=== PATIENT | female | born 1960 | race Hispanic/Latino ===

== ENCOUNTER 2016-11-20 16:22 | Inpatient (IN) | payer OTHER ==
--- NOTE | 2016-11-20 16:53 | ED PDOC ---
Arrival/HPI - General Time Seen by Provider: 11/20/16 16:24 Historian: Patient, Other (PMD) - History of Present Illness Narrative History of Present Illness (Text): 11/20/16 16:45 A 56 year old female, whose past medical history includes breast cancer stage IV on Xeloda every other week and right breast mastectomy, is sent into the emergency department by PMD for shortness of breath. Dr. Peraza reports chest xray findings showed left lung white out. Patient complains of worsening shortness of breath over the past week. Patient states her symptoms are exacerbated with movement and relieved at rest. Patient denies any fever, chills , nausea, vomiting, abdominal pain, chest pain, lower extremity pain/swelling or any other complaints. PMD: Dr. Hamilton Peraza Oncologist: Dr. Magallanes Time/Duration: 1 week Symptom Course: Worsening Quality: Other Context: Home, Other Past Medical History - Provider Review Nursing Documentation Reviewed: Yes - Infectious Disease Hx of Infectious Diseases: None - Cardiac Hx Pacemaker: Yes (PT TO BRING IN CARD-) Other/Comment: L chest pacemaker+defibrillator - Neurological Hx Paralysis: No - Hematological/Oncological Hx Blood Transfusions: Yes (1997) Hx Blood Transfusion Reaction: No Hx Cancer: Yes (R breast CA, L shoulder skin CA) - Integumentary Other/Comment: L skin CA - Musculoskeletal/Rheumatological Hx Musculoskeletal Disorders: No - Psychiatric Hx Emotional Abuse: No Hx Physical Abuse: No Hx Substance Use: No - Surgical History Other/Comment: L chest pacemaker+defib - Anesthesia Hx Anesthesia: Yes Hx Anesthesia Reactions: No Hx Malignant Hyperthermia: No - Suicidal Assessment Feels Threatened In Home Enviroment: No Family/Social History - Physician Review Nursing Documentation Reviewed: Yes Family/Social History: No Known Family HX Smoking Status: Unknown If Ever Smoked Hx Alcohol Use: No Hx Substance Use: No Allergies/Home Meds Allergies/Adverse Reactions: Allergies No Known Allergies Allergy (Verified 08/07/15 13:27) Home Medications: Home Meds Medication Instructions Recorded Confirmed Aspirin [Ecotrin] 81 mg PO DAILY 08/08/15 11/20/16 Biotin [Nature's Blend Biotin] 1,000 mcg PO BID 08/08/15 11/20/16 Carvedilol [Coreg] 6.25 mg PO BID 08/08/15 11/20/16 Exemestane 25 mg PO QPM 08/08/15 11/20/16 Furosemide [Lasix] 40 mg PO QAM 08/08/15 11/20/16 Losartan [Cozaar] 25 mg PO QPM 08/08/15 11/20/16 Review of Systems - Physician Review All systems were reviewed & negative as marked: Yes - Review of Systems Constitutional: absent: Fevers, Night Sweats Respiratory: SOB Cardiovascular: absent: Chest Pain Gastrointestinal: absent: Abdominal Pain, Nausea, Vomiting Physical Exam Vital Signs Reviewed: Yes Vital Signs Temp Pulse Resp BP Pulse Ox 11/20/16 21:18 109 H 18 116/85 94 L 11/20/16 19:59 112 H 18 123/67 97 11/20/16 18:23 99 H 17 130/85 98 11/20/16 16:40 97.9 F 107 H 19 127/80 97 Temperature: Afebrile Blood Pressure: Normal Pulse: Tachycardic Respiratory Rate: Normal Appearance: Positive for: Well-Appearing, Non-Toxic, Comfortable Pain Distress: None Mental Status: Positive for: Alert and Oriented X 3 - Systems Exam Head: Present: Atraumatic, Normocephalic Pupils: Present: PERRL Extroacular Muscles: Present: EOMI Conjunctiva: Present: Normal Mouth: Present: Moist Mucous Membranes Neck: Present: Normal Range of Motion Respiratory/Chest: Present: Clear to Auscultation, Decreased Breath Sounds (on left), Tachypneic (mild). No: Respiratory Distress, Accessory Muscle Use Cardiovascular: Present: Regular Rate and Rhythm, Normal S1, S2. No: Murmurs Abdomen: Present: Normal Bowel Sounds. No: Tenderness, Distention, Peritoneal Signs Back: Present: Normal Inspection Upper Extremity: Present: Normal Inspection. No: Cyanosis, Edema Lower Extremity: Present: Normal Inspection. No: Edema, CALF TENDERNESS Neurological: Present: GCS=15, CN II-XII Intact, Speech Normal Skin: Present: Warm, Dry, Normal Color. No: Rashes Psychiatric: Present: Alert, Oriented x 3, Normal Insight, Normal Concentration Medical Decision Making ED Course and Treatment: 11/20/16 16:45 Impression: A 56 year old female with worsening shortness of breath. Patient denies any chest pain or other complaints. Differential Diagnosis included but are not limited to: Pleural effusion secondary to Lung CA Plan: -- Chest CT -- Chest xray -- EKG -- Labs -- Blood culture -- Reassess and disposition Progress Notes: EKG shows sinus tachycardia at [address] changes. Interpreted by me. Report Date : 11/20/2016 17:28:45 Procedure: Chest xray Dictator : Fidel Torres MD IMPRESSION: Complete opacification of the left hemithorax with shift of mediastinal structures to the contralateral, right side likely reflective of combination pulmonary parenchymal process/ mass and left pleural effusion. No comparison studies. 11/20/16 17:[address] Hamilton Peraza to let him know of Xray findings. He placed me on with Dr. Magallanes who told me that he had spoken already with Dr. Jasmine who is aware of case and said to call him when xray was back. Paged Dr. Jasmine via [email or web address]. 11/20/16 18:[address] Jasmine's content assistant/confidential secretary that he's in a procedure and will be done soon. Report Date : 11/20/2016 18:56:29 PROCEDURE: CT Chest with contrast Dictator : Fidel Torres MD IMPRESSION: Large left pleural effusion. Compressive atelectasis left lung. Complete collapse of the left lung in part relates to tumor mass with circumferential involvement of left pulmonary artery and left tracheobronchial tree at the level of the lobar bronchi. Findings likely reflective of hepatic metastatic disease. Sclerotic Osseous metastatic disease, involving the left scapula. 11/20/16 19:00 Dr. Jasmine called back and I discussed the case with him. He reviewed the CT with report and agrees she needs urgent drainage. He will come down to do the procedure. 11/20/16 20:12 Dr. Peck, ICU, came to evaluate patient. He agreed to accept the patient overnight to the ICU. Pending Dr. Jasmine. 11/20/16 20:25 Dr. Jasmine's RN Yanet at bedside to prepare patient for procedure. - Critical Care Critical Care Minutes: 30 minutes - Lab Interpretations Microbiology Results: Microbiology Results 11/20/16 17:40 Blood-Venous Blood Culture - Preliminary NO GROWTH AFTER 3 DAYS 11/20/16 17:10 Blood-Venous Blood Culture - Preliminary NO GROWTH AFTER 3 DAYS Lab Results: 11/20/16 17:10 11/20/16 17:45 Lab Results 11/20/16 19:20: Blood Type A NEGATIVE, Antibody Screen Negative, BBK History Checked No verified bt 11/20/16 17:45: Sodium 141, Chloride 101, Potassium 3.6, Carbon Dioxide 28, Anion Gap 16, BUN 17, Creatinine 0.6, Est GFR ( Amer) > 60, Est GFR (Non- Af Amer) > 60, Random Glucose 112 H, Calcium 8.8, Total Bilirubin 0.7, AST 36, ALT 21, Alkaline Phosphatase 82, Lactate Dehydrogenase 607, Total Creatine Kinase 55, Troponin I < 0.01, NT-Pro-B Natriuret Pep 397, Total Protein 8.2, Albumin 4.1, Globulin 4.1, Albumin/Globulin Ratio 1.0 L 11/20/16 17:10: pO2 95 H, VBG pH 7.46 H, VBG pCO2 38.0 L, VBG HCO3 27.0, VBG Total CO2 28.2 H, VBG O2 Sat (Calc) 98.5 H, VBG Base Excess 3.1 H, VBG Potassium 3.9, Sodium 137.0, Chloride 105.0, Glucose 127 H, Lactate 1.5, FiO2 21.0, Venous Blood Potassium 3.9 11/20/16 17:10: PT 12.0 H, INR 1.11 H, APTT 24.9 11/20/16 17:10: WBC 9.5 D, RBC 3.83, Hgb 11.8 L, Hct 34.9 L, MCV 91.1, MCH 30.8 , MCHC 33.8, RDW 12.8, Plt Count 447, MPV 9.1, Gran % 68.6 H, Lymph % (Auto) 18.3 L, Valencia % (Auto) 11.4 H, Eos % (Auto) 1.2 L, Baso % (Auto) 0.5, Gran # 6.53 H, Lymph # 1.7, Valencia # 1.1 H, Eos # 0.1, Baso # 0.05 I have reviewed the lab results: Yes - RAD Interpretation Radiology Orders: 11/20/16 16:52 CHEST PORTABLE [RAD] Stat 11/20/16 16:53 CHEST W/CONTRAST [CT] Stat 11/20/16 20:00 THORACENTESIS [US] Stat - Medication Orders Current Medication Orders: Acetaminophen (Tylenol 325mg Tab) 650 mg PO Q6H PRN PRN Reason: Pain, Mild (1-3) Albuterol/Ipratropium (Duoneb 3 Mg/0.5 Mg (3 Ml) Ud) 3 ml IH [id number] [facility] Last Admin: 11/24/16 01:40 Dose: 3 ml Aspirin (Ecotrin) 81 mg PO DAILY [facility] Last Admin: 11/23/16 10:22 Dose: 81 mg Carvedilol (Coreg) 6.25 mg PO BID [facility] Last Admin: 11/23/16 17:34 Dose: 6.25 mg Exemestane (Aromasin) 25 mg PO QPM [facility] Last Admin: 11/23/16 17:31 Dose: 25 mg Furosemide (Lasix) 40 mg PO QAM [facility] Last Admin: 11/23/16 10:21 Dose: 40 mg Guaifenesin/Dextromethorphan (Robitussin Dm) 10 ml PO Q4H PRN PRN Reason: Cough Last Admin: 11/23/16 01:18 Dose: 10 ml Cefepime HCl (Maxipime 1gm) 1 gm in 100 mls @ 100 mls/hr IVPB Q8 [facility] PRN Reason: Protocol Last Admin: 11/24/16 05:44 Dose: 100 mls/hr Vancomycin HCl (Vancomycin 1gm) 1 gm in 250 mls @ 167 mls/hr IVPB Q12H [facility] PRN Reason: Protocol Last Admin: 11/24/16 02:29 Dose: 167 mls/hr Losartan Potassium (Cozaar) 25 mg PO QPM [facility] Last Admin: 11/23/16 17:30 Dose: 25 mg Pantoprazole Sodium (Protonix Ec Tab) 40 mg PO 0600 [facility] Last Admin: 11/24/16 05:44 Dose: 40 mg Tramadol HCl (Ultram) 50 mg PO Q6H PRN PRN Reason: Pain, moderate (4-7) Discontinued Medications Azithromycin (Zithromax) 250 mg PO DAILY [facility] PRN Reason: Protocol Stop: 11/22/16 10:00 Last Admin: 11/21/16 09:06 Dose: Ceftriaxone Sodium (Rocephin 1 Gram Ivpb) 1 gm in 100 mls @ 100 mls/hr IVPB DAILY [facility] PRN Reason: Protocol Last Admin: 11/21/16 11:34 Dose: 100 mls/hr Iohexol (Omnipaque 350 100 Ml) Confirm Administered Dose 350 mg .ROUTE .STK-MED ONE Stop: 11/20/16 18:20 Morphine Sulfate (Morphine) 4 mg IVP STAT STA Stop: 11/20/16 21:06 Non-Formulary Medication (Biotin [Biotin]) 1,000 mcg PO BID [facility] Last Admin: 11/23/16 10:15 Dose: Potassium Chloride (K-Dur 20 Meq Er Tab) 20 meq PO BID [facility] Stop: 11/23/16 16:00 Last Admin: 11/23/16 10:21 Dose: 20 meq Potassium Chloride (K-Dur 20 Meq Er Tab) 20 meq PO ONCE ONE Stop: 11/23/16 17:30 Last Admin: 11/23/16 17:32 Dose: 20 meq - Scribe Statement The provider has reviewed the documentation as recorded by the Charisma Aldana Provider Scribe Attestation: All medical record entries made by the Cecliioibhortensia were at my direction and personally dictated by me. I have reviewed the chart and agree that the record accurately reflects my personal performance of the history, physical exam, medical decision making, and the department course for this patient. I have also personally directed, reviewed, and agree with the discharge instructions and disposition. Disposition/Present on Arrival - Present on Arrival Any Indicators Present on Arrival: No History of DVT/PE: No History of Uncontrolled Diabetes: No Urinary Catheter: No History of Decub. Ulcer: No History Surgical Site Infection Following: None - Disposition Have Diagnosis and Disposition been Completed?: Yes Diagnosis: Pleural effusion, left Disposition: HOSPITALIZED Disposition Time: 19:48 Patient Plan: Admission, ICU Patient Problems: Current Active Problems Problem Status Onset Pleural effusion, left Acute Condition: SERIOUS
[2016-11-20 17:30] LABS: VENOUS BLOOD GAS BASE EXCESS 3.1 mmol/L (0.0-2.0); VENOUS BLOOD PH 7.46 (7.32-7.43)
--- NOTE | 2016-11-20 17:30 | RAD ---
HISTORY: Shortness of breath, rule a pleural effusion. Relevant medical history: Breast cancer, status post right mastectomy. COMPARISON: No prior. FINDINGS: LUNGS: Complete opacification of the left imtiaz thorax was shift of mediastinal structures to the contralateral side. PLEURA: Findings in the left hemithorax likely representing combination of mass and pleural effusion. The CARDIOVASCULAR: No radiographic findings to suggest acute or significant cardiovascular disease. Position/ configuration of pacemaker device: Satisfactory. OSSEOUS STRUCTURES: No significant abnormalities. VISUALIZED UPPER ABDOMEN: Normal. OTHER FINDINGS: None. IMPRESSION: Complete opacification of the left hemithorax with shift of mediastinal structures to the contralateral, right side likely reflective of combination pulmonary parenchymal process/ mass and left pleural effusion. No comparison studies.
[2016-11-20 17:40] LABS: BASO # 0.05 K/mm3 (0.0-2.0); BASO % 0.5 % (0.0-3.0); EOS # 0.1 (0.0-0.7); EOS % 1.2 % (1.5-5.0); GRAN # 6.53 (1.4-6.5); GRAN % 68.6 % (50.0-68.0); HEMATOCRIT 34.9 % (36.0-48.0); LYMPH # 1.7 (1.2-3.4); LYMPH % 18.3 % (22.0-35.0); MEAN CELL VOLUME 91.1 fl (80.0-105.0); MEAN CORPUSCULAR HEMOGLOBIN 30.8 pg (25.0-35.0); MEAN CORPUSCULAR HGB CONC 33.8 g/dl (31.0-37.0); MEAN PLATELET VOLUME 9.1 fl (7.0-11.0); MONO # 1.1 (0.1-0.6); MONO % 11.4 % (1.0-6.0); RED CELL DISTRIBUTION WIDTH 12.8 % (11.5-14.5); WHITE BLOOD COUNT 9.5 10^3/ul (4.5-11.0)
[2016-11-20 17:46] LABS: INR 1.11 (0.93-1.08); PARTIAL THROMBOPLASTIN TIME 24.9 Seconds (23.7-30.8)
[2016-11-20 18:10] LABS: ALKALINE PHOSPHATASE 82 U/L (38-126); ALT/SGPT 21 U/L (7-56); AST/SGOT 36 U/L (14-36); BILIRUBIN,TOTAL 0.7 mg/dL (0.2-1.3); BLOOD UREA NITROGEN 17 mg/dL (7-21); CALCIUM 8.8 mg/dL (8.4-10.5); CARBON DIOXIDE 28 mmol/L (21-33); CHLORIDE 101 mmol/L (98-107); GFR AFRICAN-AMERICAN > 60; GLUCOSE,RANDOM 112 mg/dL (70-110); POTASSIUM 3.6 mmol/L (3.6-5.0); SODIUM 141 mmol/L (132-148); TOTAL PROTEIN 8.2 g/dL (5.8-8.3)
[2016-11-20] MEDS ORDERED: Iohexol 350 MG/100 ML VIAL ONE (18:19)
[2016-11-20 18:24] LABS: TROPONIN I < 0.01 ng/mL
--- NOTE | 2016-11-20 18:58 | CT ---
PROCEDURE: CT Chest with contrast HISTORY: dec left breathe sounds r/o pleural effusion/mass COMPARISON: None. TECHNIQUE: Contiguous axial images were obtained through the chest with intravenous contrast enhancement. Sagittal and coronal reconstructions were performed. IV contrast: 100 cc Omnipaque 350. Radiation dose (DLP): 30.24 mGy-cm. This CT exam was performed using one or more of the following dose reduction techniques: Automated exposure control, adjustment of the mA and/or kV according to patient size, and/or use of iterative reconstruction technique. FINDINGS: LUNGS: Compressive atelectasis related to large left pleural effusion. Necrotic mass/tumor identified medially in the left lung with extension into the left hilum and mediastinum. There is circumferential narrowing of the left main pulmonary artery and lobar branches of the tracheobronchial tree on the left. There is no aerated left lung, the left imtiaz thorax comprised of large left pleural effusion, compressive and postobstructive atelectasis can't tumor inseparable from the the collapsed left lung extending into the left hilum. MEDIASTINUM: Mild aneurysmal dilatation of the ascending aorta, maximum diameter 3.9 cm with orthogonal mean diameter 3.4 cm. Normal sized heart. Main pulmonary artery unremarkable. No vascular congestion. No radiographic findings to suggest acute or significant cardiovascular disease. Position/ configuration of pacemaker Satisfactory. There is a is narrowing or thrombosis of the left subclavian vein with collateral flow through vertebral arteries. PLEURA: Large left pleural effusion common no significant right pleural effusion. BONES: Sclerotic metastatic disease involving the left scapula. UPPER ABDOMEN: Hepatic masses in the right hepatic lobe the largest measuring 1.9 cm. Smaller lesions in the right hepatic lobe are less well visualized. The overall appearance suggests hepatic metastatic disease. OTHER FINDINGS: None. IMPRESSION: Large left pleural effusion. Compressive atelectasis left lung. Complete collapse of the left lung in part relates to tumor mass with circumferential involvement of left pulmonary artery and left tracheobronchial tree at the level of the lobar bronchi. Findings likely reflective of hepatic metastatic disease. Sclerotic Osseous metastatic disease, involving the left scapula.
[2016-11-20] MEDS ORDERED: Morphine 4 mg/ml ISec IVP STA (21:05)
--- NOTE | 2016-11-20 21:53 | CP.PCM.CON ---
<ISAURA SANTACRUZ - Last Filed: 11/21/16 02:19> History of Present Illness - History of Present Illness History of Present Illness: Isaura Santacruz DO PGY1 - ICU Consult Note CC: SOB HPI: 56 yo F with PMH of stage IV breast CA on Xeloda every other week and Exemestane and CHF presents to ER complaining of SOB, sent by PMD after outpatient CXR showed white out of the L lung. Patient reports that she has been SOB for about one week, only when she walks or exerts herself. She denies cough, F/C, chest pain, leg pain/swelling, abdominal pain, N/V/D/C. Regarding her CHF, patient reports that she was diagnosed several years ago after she was found to have b/l pleural effusions, at which point her EF was 16%, on more recent echo EF was reportedly 37%, though no documentation available at present , and none in EMR. Patient had bedside thoracentesis, and was seen again immediately afterwards. She had some cough and chest pain, which was already improving. Also noted improvement in SOB. No hemoptysis, hematemesis, dizziness. PMH: Stage IV breast CA s/p right mastectomy, CHF (LVEF 37%) PSH: R mastectcomy, Pacemaker/Defibrillator placement Meds: See MAR FHx: VA in father, CVA in mother Soc: Denies Tob, EtOH, and illicits All: NKDA Constitutional: pt denies fever, chills, generalized weakness ENT: pt denies dysphagia, otalgia, hearing deficit, rhinorrhea Eyes: pt denies sudden loss of vision, diplopia, blurred vision MSK: pt denies muscle stiffness, joint pain, extremity cramping Cardio: +SOB pt denies heart murmur, CP Pulm: pt denies cough, hemoptysis, wheeze GI: pt denies loss of appetite, abdominal pain, constipation, melena, n/v/d : pt denies burning on urination, urinary frequency, hematuria, urinary urgency Neuro: pt denies paresis, paresthesia, dizziness, luz, numbness, tingling Derm: pt denies skin changes, lesions, nail changes Endo: pt denies intolerance to heat/cold, diaphoresis, night sweats, polydipsia Psych: pt denies anxiety, depression, mood changes PMD: Dr. Hamilton Peraza Oncologist: Dr. Magallanes Past Patient History - Infectious Disease Hx of Infectious Diseases: None - Past Social History Smoking Status: Unknown If Ever Smoked - CARDIAC Hx Pacemaker: Yes (PT TO BRING IN CARD-) Other/Comment: L chest pacemaker+defibrillator - NEUROLOGICAL Hx Paralysis: No - HEMATOLOGICAL/ONCOLOGICAL Hx Blood Transfusions: Yes (1997) Hx Blood Transfusion Reaction: No Hx Cancer: Yes (R breast CA, L shoulder skin CA) - INTEGUMENTARY Other/Comment: L skin CA - MUSCULOSKELETAL/RHEUMATOLOGICAL Hx Musculoskeletal Disorders: No - PSYCHIATRIC Hx Emotional Abuse: No Hx Physical Abuse: No Hx Substance Use: No - SURGICAL HISTORY Other/Comment: L chest pacemaker+defib - ANESTHESIA Hx Anesthesia: Yes Hx Anesthesia Reactions: No Hx Malignant Hyperthermia: No Meds Allergies/Adverse Reactions: Allergies Allergy/AdvReac Type Severity Reaction Status Date / Time No Known Allergies Allergy Verified 08/07/15 13:27 - Medications Medications: Current Medications Acetaminophen (Tylenol 325mg Tab) 650 mg PO Q6H PRN PRN Reason: Pain, Mild (1-3) Aspirin (Ecotrin) 81 mg PO DAILY [facility] Azithromycin (Zithromax) 250 mg PO DAILY [facility] PRN Reason: Protocol Stop: 11/22/16 10:00 Carvedilol (Coreg) 6.25 mg PO BID [facility] Exemestane (Aromasin) 25 mg PO QPM [facility] Furosemide (Lasix) 40 mg PO QAM [facility] Losartan Potassium (Cozaar) 25 mg PO QPM [facility] Non-Formulary Medication (Biotin [Biotin]) 1,000 mcg PO BID [facility] Pantoprazole Sodium (Protonix Ec Tab) 40 mg PO 0600 [facility] Tramadol HCl (Ultram) 50 mg PO Q6H PRN PRN Reason: Pain, moderate (4-7) Physical Exam - Constitutional Appears: Non-toxic, No Acute Distress - Head Exam Head Exam: ATRAUMATIC, NORMOCEPHALIC - Eye Exam Eye Exam: EOMI, PERRL - ENT Exam ENT Exam: Mucous Membranes Moist - Neck Exam Additional comments: No JVD sitting upright. - Respiratory Exam Respiratory Exam: NORMAL BREATHING PATTERN. absent: Respiratory Distress Additional comments: On initial exam, R lung CTA, no lung sounds on left After thoracentesis, bilateral lungs CTA with equal breath sounds, good air exchange, no rales or rhonchi - Cardiovascular Exam Cardiovascular Exam: RRR, +S1, +S2. absent: Tachycardia - GI/Abdominal Exam GI & Abdominal Exam: Normal Bowel Sounds, Soft. absent: Tenderness - Extremities Exam Extremities exam: Negative for: calf tenderness, pedal edema - Neurological Exam Neurological exam: Alert, Oriented x3 - Psychiatric Exam Psychiatric exam: Normal Affect, Normal Mood - Skin Skin Exam: Dry, Intact Results - Vital Signs Recent Vital Signs: Last Vital Signs Temp 97.9 F 11/20/16 16:40 Pulse 109 H 11/20/16 21:18 Resp 18 11/20/16 21:18 BP 116/85 11/20/16 21:18 Pulse Ox 94 L 11/20/16 21:18 - Labs Result Diagrams: 11/20/16 17:10 11/20/16 17:45 Assessment & Plan - Assessment and Plan (Free Text) Assessment: 56 yo F with PMH of stage IV breast CA s/p mastectomy, on chemotherapy and hormone therapy, CHF with reported LVEF 37%, presents with SOB and L lung white- out on CXR, now s/p thoracentesis 2.9L. Plan: Neuro: - Patient is AAOx3, mentating well - Continue to monitor for change in mental status Cardio: - Patient is currently hemodynamically stable s/p thoracentesis 2.9L - Pt has history of CHF with reported LVEF 37%, though no documentation of prior echo available - Ordered echocardiogram to r/o worsening CHF and establish a baseline - Pt did not take home meds today, but will hold until AM - Maintain MAP>65 Pulm: - Pt presented with massive unilateral pleural effusion, likely 2/2 metastatic breast CA, without hemodynamic compromise - Now s/p thoracentesis 2.9L with IR (Dr. Jasmine); fluid appears serosanguinous - Postprocedural CXR shows no residual mediastinal shift, good aeration of both lungs, resolution of pleural effusion - Repeat CXR in AM ordered - Pleural fluid sent for cytological analysis, cell count - Patient is now saturating well on 2L NC, and lungs are CTA - Monitor closely for reexpansion pulmonary edema - Pain control with Tylenol and Tramadol for pleurisy - Robitussin for cough suppression - HOB elevation >30 degrees, Maintain SaO2 >90% GI: - Patient tolerating PO - Heart healthy diet - Protonix for Ppx Renal: - Monitor and replete lytes as needed - Maintain euvolemia Endo: - Patient on Exemestane hormonal therapy at home. 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 Magallanes and Dr. Peraza for this issue - Pleural effusion likely 2/2 metastatic disease; fluid sent for cytological analysis, cell count - Dr. Peraza accepted patient admission, appreciate recs GI/DVT Ppx - Protonix and SCD. Patient seen, discussed, and reviewed with attending <Jair Peck P - Last Filed: 11/21/16 03:56> Meds - Medications Medications: Current Medications Acetaminophen (Tylenol 325mg Tab) 650 mg PO Q6H PRN PRN Reason: Pain, Mild (1-3) Aspirin (Ecotrin) 81 mg PO DAILY [facility] Azithromycin (Zithromax) 250 mg PO DAILY [facility] PRN Reason: Protocol Stop: 11/22/16 10:00 Carvedilol (Coreg) 6.25 mg PO BID [facility] Exemestane (Aromasin) 25 mg PO QPM [facility] Furosemide (Lasix) 40 mg PO QAM [facility] Guaifenesin/Dextromethorphan (Robitussin Dm) 10 ml PO Q4H PRN PRN Reason: Cough Last Admin: 11/20/16 23:12 Dose: 10 ml Losartan Potassium (Cozaar) 25 mg PO QPM [facility] Non-Formulary Medication (Biotin [Biotin]) 1,000 mcg PO BID [facility] Pantoprazole Sodium (Protonix Ec Tab) 40 mg PO 0600 [facility] Tramadol HCl (Ultram) 50 mg PO Q6H PRN PRN Reason: Pain, moderate (4-7) Results - Vital Signs Recent Vital Signs: Last Vital Signs Temp 98.1 F 11/21/16 00:00 Pulse 109 H 11/21/16 03:00 Resp 34 H 11/21/16 03:00 BP 121/92 H 11/21/16 03:00 Pulse Ox 94 L 11/21/16 00:00 - Labs Result Diagrams: 11/20/16 17:10 11/20/16 17:45 Labs: Laboratory Results - last 24 hr 11/20/16 11/20/16 21:16 22:23 Fluid Source Pleural/thoracentesi Fluid Appearance Bloody Fluid WBC 1297.0 H Fluid RBC 04774.0 H Fluid Tot Cell Count 100 H Fluid Neutrophils 87.5 H Fluid Lymphocytes 12.5 H Fld Monocyte/Macrophag 0 Fluid Comment Sl cloudy Blood Type Confirm A NEGATIVE Attending/Attestation - Attestation I have personally seen and examined this patient.: Yes I have fully participated in the care of the patient.: Yes I have reviewed all pertinent clinical information: Yes Notes (Text): Large pl effusion with complete left white out pushing mediastinum, h/o chf s/p AICD, recent EF 37%, breast cancer with mets in bones on treatment. S/p plerural tap in ER by IR, Dr. Jasmine, patient tolerated well about 2.9 lit serosanginious fluid. Observe in ICU, w/u large volume tap reflex pulm edema, continue home meds. See orders for detail.
[2016-11-20 23:10] VITALS: BMI 28.0
[2016-11-20] MEDS: guaiFENesin DM 200 mg-20 mg/10 ml UD PO PRN (23:12)
[2016-11-21 02:58] LABS: BODY FLUID TYPE PLEURAL/THORACENTESI
[2016-11-21 03:35] LABS: BF GROSS APPEARANCE BLOODY (CLEAR)
[2016-11-21 03:44] LABS: BODY FLUID TOTAL COUNT 100 (0-0)
[2016-11-21] MEDS: Pantoprazole 40 mg EC Tab PO SCH (05:30)
[2016-11-21 07:36] LABS: BASO # 0.02 K/mm3 (0.0-2.0); BASO % 0.1 % (0.0-3.0); EOS % 0.1 % (1.5-5.0); GRAN # 11.65 (1.4-6.5); GRAN % 85.3 % (50.0-68.0); HEMATOCRIT 39.1 % (36.0-48.0); LYMPH # 1.3 (1.2-3.4); LYMPH % 9.5 % (22.0-35.0); MEAN CORPUSCULAR HEMOGLOBIN 30.8 pg (25.0-35.0); MEAN CORPUSCULAR HGB CONC 33.5 g/dl (31.0-37.0); MEAN PLATELET VOLUME 9.3 fl (7.0-11.0); MONO # 0.7 (0.1-0.6); RED CELL DISTRIBUTION WIDTH 12.8 % (11.5-14.5); WHITE BLOOD COUNT 13.7 10^3/ul (4.5-11.0)
[2016-11-21 07:49] LABS: ALB/GLOB RATIO 0.9 (1.1-1.8); ALKALINE PHOSPHATASE 75 U/L (38-126); ALT/SGPT 28 U/L (7-56); AST/SGOT 44 U/L (14-36); BILIRUBIN,TOTAL 0.8 mg/dL (0.2-1.3); BLOOD UREA NITROGEN 19 mg/dL (7-21); CALCIUM 8.7 mg/dL (8.4-10.5); CARBON DIOXIDE 30 mmol/L (21-33); CHLORIDE 101 mmol/L (95-110); GFR AFRICAN-AMERICAN > 60; GLUCOSE,RANDOM 125 mg/dL (70-110); POTASSIUM 3.8 mmol/L (3.6-5.0); SODIUM 141 mmol/L (132-148); TOTAL PROTEIN 7.5 g/dL (5.8-8.3)
--- NOTE | 2016-11-21 08:42 | CARD ---
APPROVED REPORT EKG Measurement Heart [id number] [place] [id number] <Conclusion> Sinus tachycardia Poor Progression of R in V1-V4.
--- NOTE | 2016-11-21 09:03 | RAD ---
HISTORY: f/u s/p thoracentesis COMPARISON: Comparison is made to 11/20/2016 FINDINGS: LUNGS: Interval resolving of the previously seen large left pleural effusion and interval are pre expanding of the left lung. There is a consolidation at the left lung apex may represent residual atelectasis. PLEURA: Blunting of the left costophrenic angle suggestive of residual small pleural effusion. CARDIOVASCULAR: The cardiac silhouette is enlarged. Left-sided single wire a ACD is seen in place. OSSEOUS STRUCTURES: No significant abnormalities. VISUALIZED UPPER ABDOMEN: Normal. OTHER FINDINGS: None. IMPRESSION: Interval almost complete resolving of the previously seen large left pleural effusion. Interval re- expanding of the left lung.
[2016-11-21] MEDS ORDERED: cefTRIAXone 1 gm 1 GM/100 ML BAG IVPB SCH (10:00)
[2016-11-21] MEDS: BIOTIN 1000 MCG PO SCH ×2 (11:34→18:23)
[2016-11-21 11:38] LABS: BODY FLUID TYPE PLEURAL
[2016-11-21 11:53] LABS: BF GROSS APPEARANCE BLOODY (CLEAR)
[2016-11-21 11:54] LABS: BODY FLUID TOTAL COUNT 100 (0-0)
--- NOTE | 2016-11-21 12:48 | RAD ---
HISTORY: s/p thoracentesis COMPARISON: Comparison is made to 11/20/2016 FINDINGS: LUNGS: Interval appearance of heterogeneous opacity at the left upper lung and diffuse homogeneous opacity at the left lower chest since the previous exam. PLEURA: Suspicious for possible left pleural effusion CARDIOVASCULAR: The heart is enlarged. OSSEOUS STRUCTURES: No significant abnormalities. VISUALIZED UPPER ABDOMEN: Normal. OTHER FINDINGS: None. IMPRESSION: New opacity at the left chest since the previous study. The possibility of atelectasis and/or pleural effusion should be considered. If indicated further assessment by CT may be obtained.
--- NOTE | 2016-11-21 14:02 | HP ---
For Dr. Magallanes. CHIEF COMPLAINT: Shortness of breath. HISTORY OF PRESENT ILLNESS: The patient is a 56-year-old female, sees Dr. 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 The patient is now here for evaluation of increasing shortness of breath with the patient having had a chest x-ray recently by her microfiche camera operator, Dr. Tavo Villasenor, which is showing whiteout of the left chest. She is now admitted by the emergency room for evaluation and possible thoracentesis as per Dr. Qamar Jasmine as possible. She has family members at the bedside and appears to be in no acute distress except for the shortness of breath complaint. PAST MEDICAL HISTORY: Stage III/IV breast cancer, status post mastectomy and neoadjuvant chemotherapy, followed by surgeon, radiation with autologous bone transplant. 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 Lytic lesion, left scapula. The patient's most recent PET-CT in 07/2015, showed metastatic disease in the left hilum with a pleural-based mass in the right upper lobe with lytic metastatic lesion in the left scapula. FAMILY HISTORY: Noncontributory. SOCIAL HISTORY: Noncontributory. At present, the patient is a nonsmoker, non-ethanolic. PRESENT MEDICATIONS: Include aspirin, losartan, Lasix, carvedilol, exemestane, Xeloda, vitamin D. She also received Faslodex and Xgeva periodically as per Dr. Magallanes's recommendation. ALLERGIES: NO KNOWN ALLERGIES. REVIEW OF SYSTEMS: A 12-point review of systems was done with negative findings except as mentioned in the HPI. PHYSICAL EXAMINATION VITAL SIGNS: Temperature 97.9, pulse 107, respirations 18, blood pressure 127/80, pulse ox 97%. HEENT: Unremarkable. NECK: Supple. HEART: Regular rate. LUNGS: Decreased breath sounds on the left with modest tachypnea. No accessory muscle use. ABDOMEN: Soft, nontender. EXTREMITIES: No edema. SKIN: Warm and dry. NEUROLOGIC: Awake, alert, and oriented. LABORATORY DATA: The patient's labs were done, white blood cell count 9.5, hemoglobin 11.8, hematocrit 34.9, platelet count of 447,000 with the chem metabolic panel completely within normal range except for nonfasting glucose of 112, otherwise normal chem metabolic panel. The patient had ABG showing a pO2 of 95, pH of 7.46. Her INR was 1.1. The patient had a chest x-ray done earlier today, it was read as complete opacification of the left hemithorax with a shift to the mediastinal structures on the right side, likely reflective of combination of pulmonary parenchymal process, mass, and left pleural effusion. The patient's CT scan of her chest was also done today and was read as large left pleural effusion, compressive atelectasis, complete collapse of the left lung in part related to tumor mass with circumferential involvement of the left pulmonary artery and left tracheobronchial tree at the level of lobar bronchi, findings likely reflective of hepatic metastatic disease, sclerotic osseous metastatic disease involving the left scapula. The patient had an EKG which was done, will be read and a repeat chest x-ray was ordered and was not read at present. ASSESSMENT: For this patient is that of, malignant left pleural effusion with whiteout left lung, compressive atelectasis, left lung with tumor mass. Questionable hepatic metastatic disease, osseous metastatic disease secondary to stage IV cancer of the breast. History of cardiomyopathy with pacer and defibrillator, history of autologous bone transplant. PLAN: The plan for this patient, after conversation with Dr. Magallanes is to continue present medical regimen with consult with Dr. Qamar Jasmine, Dr. Ocampo, pulmonary doctor, Dr. Burch, cardiology with continuation of present medical regimen with emergency evacuation of her pleural effusion as possible with the patient to be admitted to the intensive care unit. We will monitor clinically and with labs. Prognosis for this patient is guarded. Hamilton Peraza MD
--- NOTE | 2016-11-21 14:50 | CT ---
PROCEDURE: CT Chest without contrast HISTORY: pneumonia COMPARISON: 11/20/2016 CT of the chest TECHNIQUE: Contiguous axial images were obtained through the chest without intravenous contrast enhancement. Sagittal and coronal reconstructions were performed. Radiation dose (DLP): 307 mGy-cm. This CT exam was performed using one or more of the following dose reduction techniques: Automated exposure control, adjustment of the mA and/or kV according to patient size, and/or use of iterative reconstruction technique. FINDINGS: LUNGS: There is a dense alveolar infiltrate throughout the left lung consistent with pneumonia. On yesterday's study of the lung was completely collapsed in association with the large left pleural effusion. There is a suspected left hilar mass with narrowing of the bronchus. Mediastinal adenopathy is seen. The study was reviewed with Dr. Still. MEDIASTINUM: Unremarkable thoracic aorta. No aneurysm. Normal sized heart. Main pulmonary artery unremarkable. No vascular congestion. Anterior mediastinal adenopathy PLEURA: Minimal residual pleural effusion following thoracentesis BONES: No fracture. No destructive lesion. UPPER ABDOMEN: Grossly unremarkable. OTHER FINDINGS: None. IMPRESSION: Minimal residual pleural effusion following thoracentesis. There is a diffuse alveolar infiltrate in the left lung which is re-expanded. Suspected left hilar mass and mediastinal adenopathy.
[2016-11-21] MEDS: Cefepime 1gm in NS 100ml 1 GM/100 ML BAG IVPB SCH ×2 (15:31→21:21)
[2016-11-21] MEDS: Vancomycin 1gm in NS 250ml 1 GM/250 ML BAG IVPB SCH (17:23)
--- NOTE | 2016-11-21 19:46 | CON ---
DATE: 11/21/2016 CONSULTATION INDICATIONS: Shortness of breath, pleural effusion, cardiomyopathy, and defibrillator. HISTORY OF PRESENT ILLNESS: This is a 56-year-old woman with stage IV breast cancer, status post right mastectomy, ongoing chemotherapy with Xeloda and exemestane who presents with one to two week history of shortness of breath increasing with cough and found to have opacification of the right lung on chest x-ray in the emergency room yesterday. She underwent thoracentesis removing 2.9 L with marked improvement in symptoms and in the chestx-ray appearance. Today's chest x-ray shows reaccumulation of fluid and left lung infiltrates. There was no orthopnea, PND, syncope, presyncope, lightheadedness, dizziness, vertigo, palpitations, edema, fever, chills, hemoptysis, abdominal pain, nausea, vomiting, diarrhea, constipation or melena. PAST MEDICAL HISTORY: Notable for cardiomyopathy. We have seen this patient in 2010 at which time, she presented with pulmonary infiltrates and was found to have LV dysfunction, which was thought to be due to chemotherapy cardiotoxicity. There was non-sustained VT. Invasive workup and EP evaluation was advised. The patient declined and sought a second opinion. Apparently, a defibrillator has been implanted. I am not aware of the cardiac details since 2010. Today, she is resting comfortably in bed in the intensive care unit. There was no shortness of breath. There was no chest pain. MEDIATIONS AT THE TIME OF ADMISSION: Biotin, Coreg, Cozaar, aspirin, exemestane, and Lasix. ALLERGIES: THERE ARE NO KNOWN MEDICATION ALLERGIES. SOCIAL HISTORY: She lives at home. She does not smokes cigarette. She does not drink alcohol significantly. FAMILY HISTORY: Positive for atherosclerotic cardiovascular disease. REVIEW OF SYSTEMS: A 10-point review of systems is otherwise unremarkable except as noted above. PHYSICAL EXAMINATION: GENERAL: She is a well-developed woman, lying in bed in the intensive care unit, no acute distress. VITAL SIGNS: She is in sinus rhythm, sinus tachycardia, afebrile. Blood pressure 108/78, O2 saturations 92% to 98% on nasal cannula. HEENT: Exam reveals no neck vein distention, thyromegaly or carotid bruit. Mucous membranes are moist. Conjunctivae are pink. NECK: Supple. CHEST: Lung mcmullen revealed diminished breath sounds on the left side. CARDIOVASCULAR: Examination of the heart revealed normal first and second heart sounds. ABDOMEN: Soft. Bowel sounds present. No mass or organomegaly, tenderness, rebound or guarding. NEUROLOGIC: Unremarkable. She is alert, and oriented. PSYCHIATRIC: Normal as to mood and affect. SKIN: Warm and dry. No rash or cellulitis. LABORATORY AND IMAGING: Initial chest x-ray revealed complete opacification of the left hemithorax with the shift of the mediastinal structures to the contralateral side. CT scan of the chest is noted. In addition to the effusion, there is complete collapse of the left lung with tumor mass circumferentially involving left pulmonary artery and left tracheobronchial tree. There was also metastatic disease involving the scapula. EKG demonstrates sinus tachycardia, poor R wave progression, nonspecific ST-wave changes. White count 13,700, hemoglobin 13, hematocrit 39 and platelet count 409,000. PT/INR and PTT unremarkable. Blood gases noted. Electrolytes, BUN, creatinine, blood sugar noted. Magnesium 2.0. LFTs unremarkable. CK 55, troponin less than 0.01. BMP 397. IMPRESSION: Bonny Beltran is a 56-year-old woman with metastatic breast cancer on chemotherapy status post right mastectomy with known cardiomyopathy probably due to prior chemotherapy with implantable cardioverter defibrillator implant, admitted with increasing shortness of breath and found to have large left pleural effusion status post thoracentesis and drainage of 2.9 L with improved x-ray appearance yesterday, but increasing of fluid/infiltrates on today's chest x-ray. PLAN: She is in the ICU. I will continue her cardiac medications including Coreg, losartan, aspirin, and Lasix. I will review old records as they become available. We will make sure she has had ICD followup. I will review the echocardiogram once it is done to ascertain her current cardiac function and rule out pericardial involvement and pericardial effusion. We will follow I's and O's, labs, sats, and the pleural fluid analysis. I will follow along with you. I will make additional recommendations based on her clinical course. She is being evaluated by oncology and pulmonary as well. Marcial Brown MD MTDD
[2016-11-21] MEDS: Albuterol-Ipratrop 3 mg / 0.5 (3 ml) UD IH SCH (19:52)
--- NOTE | 2016-11-21 21:10 | CON ---
DATE: 11/21/2016 HISTORY OF PRESENT ILLNESS: This is a 56-year-old lady with history of breast cancer stage IV with mets to the bone in the past status post chemotherapy (last cycle one month ago), who presented with worsening shortness of breath over the period of weeks. The patient denied chest pain, fever, chills, sweats, nausea, vomiting, diarrhea, or constipation. Her shortness of breath was getting worse with walking. She was found to have large pleural effusion on the left side, which was tapped with amount of 2.9 L out. However, chest x-ray next day did not show reexpansion of the left lung. Bedside ultrasound revealed small amount of pleural fluid, air bronchogram, and changes suggestive of atelectasis. CAT scan of the chest is pending at present time. PAST MEDICAL HISTORY: Hypertension, CHF, breast cancer. CURRENT MEDICATIONS: Tylenol, aspirin, Zithromax, Coreg, Aromasin, Lasix, Robitussin, Losartan, Protonix, Biotin, Tramadol. HOME MEDICATIONS: Losartan, Lasix, exemestane, Coreg, Biotin, aspirin. ALLERGIES: NKDA. FAMILY HISTORY: Noncontributory. REVIEW OF SYSTEMS: Review of 12-point review of systems other than mentioned in history of present illness is negative. PHYSICAL EXAMINATION: VITAL SIGNS: Blood pressure 101/64, oxygen saturation 91%, heart rate 96, respiratory rate 30 (the patient is comfortable, not in respiratory distress). ENT: Head and neck are atraumatic. LUNGS: Clear to auscultation bilaterally. HEART: Regular rate and rhythm. S1 and S2 normal. ABDOMEN: Soft, nontender and nondistended. MUSCULOSKELETAL: No C/C/E. Trace bilateral pedal and ankle edema. NEUROLOGIC: The patient moves all extremities spontaneously. SKIN: Moist. PSYCHIATRY: The patient is alert and oriented x3. LABORATORY DATA: WBC 13.7, hemoglobin 13.1, platelet counts 409. Sodium 141, potassium 3.8, chloride 101, carbon dioxide 30, BUN 19, creatinine 0.7, glucose 145, AST 44, ALT 28. Lactic acid 1.5. INR 1.11. Pleural fluid, pH, glucose, cytology and Gram stain are not available at present time. WBC 1297 and RBC 21,000. Neutrophil predominance with 87% neutrophils and 12.5% lymphocytes. CAT scan of the chest prior to thoracentesis revealed large left pleural effusion,compressed atelectasis of the left lung, complete collapse of the left lung in the part where it is a tumor mass with circumferential involvement of the left pulmonary artery and left tracheobronchial tree at the level of the lower bronchi. Other finding suggestive of hepatic metastatic disease, pleuritic osseous metastatic disease involving left scapula. ASSESSMENT AND PLAN: This is 56-year-old lady with what appears to be progression of the origin cancer, however, metachronous malignancy cannot be ruled out as well. At present time, we will repeat CAT scan to see whether whether lung indeed re-expanded and to better assess mediastinum and lung parenchyma as well as pleural anatomy after large volume thoracentesis yesterday performed. Suspicious lesions in the liver are of concern. Whether or not to proceed with repeated biopsy to obtain tissue diagnosis is a difficult question and was discussed with Dr. Magallanes. I might defer this decision to Oncology Service. It is probably worthwhile to focus more on symptomatic relief and yesterday's thoracentesis appeared to provide one. The patient subjectively feels better. Her shortness of breath has substantially improved. If residual dyspnea persists or would get worse in the absence of fluid reaccumulation (IF repeated CT chest confirms large airways compression by a tumor) consideration might be given to palliative stenting of the large airways, which may improve aeration and thus dyspnea in this patient. Palliative care consult and discussion of advanced directive appears to be reasonable. Whether or not this discussion should be held after or before obtaining tissue diagnosis option exhausted will be deferred to Oncology Service. We will continue to target euvolemia, glycemia, normothermia and oxygen saturation more than 90%. As the patient has some leukocytosis and air bronchogram on ultrasound, I will start the patient on antibiotics. Septic workup will be initiated. Sputum culture and procalcitonin will be obtained. Addendum: Repeated CT chest showed consolidations and air bronchograms encompassing entire left lung, with less of a apparent large airway compression suggested by original CT chest (prior to thoracenthesis). D/dx includes lymphangitic spread of breast cancer vs infectious pneumonia. Patient would benefit from bronchoscopy with BAL (to r/o infection) and TBBx (to rile out infection and lymphangitic spread), however patient refused after careful weighing risks and benefits-->empiric abx started, ID service consult requested. would continue with DVT/GI prophylaxis ccm time 40 min Tenzin Still MD IVAN
--- NOTE | 2016-11-21 21:33 | PN ---
DATE OF VISIT: 11/21/2016 This is [facility] visit in the intensive care unit. For Dr. Magallanes. SUBJECTIVE: The patient is a 56-year-old female, patient of Dr. Magallanes with history of breast cancer at stage III, status post mastectomy, now with known cardiomyopathy with defibrillator and pacer with whiteout of her left chest, status post thoracentesis by Dr. Qamar Jasmine for removal of pleural fluid with patient showing significant improvement in her complaint of shortness of breath with the followup chest x-ray, now showing a new opacity with possible reaccumulation of the fluid. With this, patient is present in no acute distress. OBJECTIVE: PHYSICAL EXAMINATION: VITAL SIGNS: Temperature 98, pulse is 100, respirations 14, blood pressure 124/73, pulse ox 90%. HEENT: Unremarkable. NECK: Supple. HEART: Tachy rate. Regular rhythm. LUNGS: Decreased breath sounds on the left. ABDOMEN: Soft, nontender. EXTREMITIES: No edema. NEUROLOGIC: Awake, alert and oriented. SKIN: Warm, dry and clear. The patient is status post thoracentesis approximately 2.9 liters serosanguineous fluid as per Dr. Qamar Jasmine. LABORATORY DATA: The patient's labs were done. White blood cells of count 13.7, hemoglobin level of 13.1, hematocrit 39.1, platelet count 409,000. Chem metabolic panel within normal range except for an AST of 44, nonfasting glucose of 125, INR was 1.11. The patient did have a CT scan done earlier today as per Dr. Still. IMPRESSION: Minimal residual pleural effusion following thoracentesis. There is diffuse alveolar infiltrate in the left lung which is re-expanded, suspected left hilar mass and mediastinal adenopathy. An echocardiogram was done, the reading is not available as of yet. ASSESSMENT: For this patient is that of pleural effusion on the left probably malignance with compressive atelectasis with question of hepatic metastatic disease, osseous metastatic disease second stage IV breast cancer, history of cardiomyopathy with pacer and defibrillator, and pneumonia. PLAN: The plan for this patient is to continue present medical regimen as per radiology supervisor, Dr. Ocampo, Nursing Techn, Dr. Muñoz, Infectious Disease, Dr. Burch, Cardiology and Dr. Qamar Jasmine, Vascular Radiologist. There is a strong consideration for a bronchoscopy; however, the patient is resistant to this idea at present with the possibility of Pleurx catheter versus pleurodesis, being discussed with a tissue diagnosis, not plan for and we will wait for the pleural fluid analysis with further recommendations once this is available. This is a complex patient for which multiple comorbidities with a comprehensive medically necessary appropriate visit being at this point. We will monitor clinically and with labs. Hamilton Peraza MD
[2016-11-22] MEDS: Albuterol-Ipratrop 3 mg / 0.5 (3 ml) UD IH SCH ×4 (01:56→21:13)
[2016-11-22] MEDS: Vancomycin 1gm in NS 250ml 1 GM/250 ML BAG IVPB SCH ×2 (02:00→14:32)
[2016-11-22 05:51] LABS: BASO # 0.06 K/mm3 (0.0-2.0); BASO % 0.6 % (0.0-3.0); EOS # 0.7 (0.0-0.7); EOS % 6.4 % (1.5-5.0); GRAN # 6.59 (1.4-6.5); GRAN % 64.3 % (50.0-68.0); HEMATOCRIT 35.6 % (36.0-48.0); LYMPH % 19.1 % (22.0-35.0); MEAN CORPUSCULAR HEMOGLOBIN 30.3 pg (25.0-35.0); MEAN CORPUSCULAR HGB CONC 32.6 g/dl (31.0-37.0); MEAN PLATELET VOLUME 8.9 fl (7.0-11.0); MONO % 9.6 % (1.0-6.0); RED CELL DISTRIBUTION WIDTH 12.9 % (11.5-14.5); WHITE BLOOD COUNT 10.3 10^3/ul (4.5-11.0)
[2016-11-22] MEDS: Cefepime 1gm in NS 100ml 1 GM/100 ML BAG IVPB SCH ×3 (05:52→22:13)
--- NOTE | 2016-11-22 06:00 | CON ---
DATE: 11/21/2016 PULMONARY CONSULTATION REFERRING PHYSICIAN: Dr. Magallanes. REASON FOR CONSULTATION: Large pleural effusion, lung mass, history of breast cancer. HISTORY OF PRESENT ILLNESS: This is a 56-year-old female with past medical history of significant for breast cancer, which was stage III, requiring mastectomy, neoadjuvant chemotherapy followed by surgery, also has a history of autologous bone marrow transplant. She had been doing okay overall, seen by Cardiology other day, where x-ray shows whiteout left lung. She was admitted to emergency room, seen by Dr. Jasmine, who did left sided thoracentesis and drained large amount of pleural effusion, presently admitted to intensive care unit, ended up with re-expansion pulmonary edema. She has cough and sputum production, mild chest pain, no nausea and vomiting. No diarrhea. No leg pain or leg swelling. PAST MEDICAL HISTORY: Breast cancer stage III with chemoradiation and mastectomy in the remote past, cardiomyopathy, has a defibrillator. SOCIAL HISTORY: Nonsmoker. Nondrinker. FAMILY HISTORY: No significant cardiopulmonary disease reported. ALLERGIES: NONE KNOWN. MEDICATIONS: She is on Aromasin 25 mg daily, Biotin 1000 mcg twice a day, Coreg 6.25 mg twice a day, Cozaar 25 mg daily, Ecotrin 81 mg daily, Lasix 40 mg daily, cefepime 1 g IV q. 8 hours, Protonix 40 mg daily, Robitussin DM q. 4 hours p.r.n., Tylenol p.r.n, Ultram 50 mg q. 6 hours p.r.n., and vancomycin 1 g IV q. 12 hours. REVIEW OF SYSTEMS: No headache, no rhinitis. Does have a cough, shortness of breath, pleuritic-type chest pain. No nausea. No vomiting. No diarrhea or dysuria. No leg pain or swelling. PHYSICAL EXAMINATION: GENERAL: Sitting up in a bed, in mild distress secondary to cough and shortness of breath. VITAL SIGNS: Temperature 98, heart rate is 100, respiratory rate is 20, blood pressure 124/73, pulse ox 94% on nasal cannula. HEENT: Moist mucous membranes. Crowded airway. NECK: Supple. No JVD. LUNGS: She has decreased breath sounds half way up in the right lung with some crackles. HEART: S1 and S2. ABDOMEN: Soft and nontender. No organomegaly. EXTREMITIES: There is no edema. NEUROLOGIC: Awake and alert, follows simple commands. LABORATORY DATA: Shows hemoglobin 13.1, and hematocrit 39.1, WBC 13.7, and platelets of 409. INR 1.1. PTT is 25. VBG shows PH of 7.46, PCO2 of 38, and O2 of 95. Sodium 141, potassium 3.8, chloride 101, bicarbonate 30, BUN 19, creatinine 0.7, glucose is 125, calcium 8.7, phosphorus 4.0, magnesium 2.0. AST 44, ALT 28, alkaline phosphatase , albumin is 3.5, procalcitonin less than 0.05. Pleural fluid shows WBC 1293, RBC is 21,000. Microbiology: Blood culture has been negative. CAT scan of the chest post-thoracentesis shows almost gone pleural effusion, but has a diffuse alveolar infiltrate at the left lung suggestive of re-expansion pneumonitis, suspected left hilar mass and mediastinal adenopathy. IMPRESSION AND PLAN: Metastatic versus primary malignancy in the chest with right large pleural effusion, symptomatic requiring thoracentesis. Post-thoracentesis, ended up with re-expansion pulmonary edema. The pleural fluid is sent for the studies. Continue present management. Gastric prophylaxis, deep venous thrombosis prophylaxis. We will add inhaled bronchodilator. Has a history cardiomyopathy, Cardiology followup. Follow up labs in the morning. Thank you, and we will follow with you. Lona Ocampo MD
[2016-11-22 06:03] LABS: ALB/GLOB RATIO 0.9 (1.1-1.8); ALKALINE PHOSPHATASE 63 U/L (38-126); ALT/SGPT 35 U/L (7-56); AST/SGOT 32 U/L (14-36); BILIRUBIN,TOTAL 0.4 mg/dL (0.2-1.3); BLOOD UREA NITROGEN 19 mg/dL (7-21); CALCIUM 7.8 mg/dL (8.4-10.5); CARBON DIOXIDE 30 mmol/L (21-33); CHLORIDE 106 mmol/L (98-107); GFR AFRICAN-AMERICAN > 60; GLUCOSE,RANDOM 104 mg/dL (70-110); POTASSIUM 3.8 mmol/L (3.6-5.0); SODIUM 143 mmol/L (132-148); TOTAL PROTEIN 6.5 g/dL (5.8-8.3)
[2016-11-22] MEDS: Pantoprazole 40 mg EC Tab PO SCH (06:06)
--- NOTE | 2016-11-22 07:26 | CARD ---
APPROVED REPORT EXAM: Two-dimensional and M-mode echocardiogram with Doppler and color Doppler. Other Information Quality : FairRhythm : INDICATION Dyspnea , Pleural efusion, cardiomyopathy 2D DIMENSIONS Left Atrium (2D)3.3 (1.6-4.0cm)IVSd0.9 (0.7-1.1cm) LVDd5.3 (3.9-5.9cm)PWd1.0 (0.7-1.1cm) LVDs4.6 (2.5-4.0cm)FS (%) 12.8 % LVEF (%)27.0 (>50%) M-Mode DIMENSIONS Aortic Root3.10 (2.2-3.7cm)Aortic Cusp Exc.1.70 (1.5-2.0cm) Aortic Valve AoV Peak Bdandzja183.0cm/s Mitral Valve E/A ratio0.0 TDI E/Lateral E'0.0E/Medial E'0.0 Tricuspid Valve TR Peak [id number] [id number] Peak Gr.27mmHg [id number] LEFT VENTRICLE The left ventricle is normal size. There is normal left ventricular wall thickness. Left ventricle systolic function is severely impaired. The Ejection Fraction is 25-30%. There is severe global hypokinesis. RIGHT VENTRICLE The right ventricle is normal size. ATRIA The left atrium size is normal. The right atrium size is normal. The interatrial septum is intact with no evidence for an atrial septal defect. AORTIC VALVE The aortic valve is mildly calcified. There is trace aortic regurgitation. MITRAL VALVE The mitral valve is normal in structure. Mitral regurgitation is trace to mild. TRICUSPID VALVE The tricuspid valve is normal in structure. There is trace tricuspid regurgitation. PULMONIC VALVE The pulmonic valve is not well visualized. GREAT VESSELS The aortic root is normal in size. PERICARDIAL EFFUSION There is no pericardial effusion. <Conclusion> The left ventricle is normal size. There is normal left ventricular wall thickness. Left ventricle systolic function is severely impaired. The Ejection Fraction is 25-30%.
--- NOTE | 2016-11-22 07:49 | CP.PCM.PN ---
Subjective - Date & Time of Evaluation Date of Evaluation: 11/22/16 Time of Evaluation: 07:00 - Subjective Subjective: Stable in ICU. She feels OK. No CP or SOB. V/S noted. RSR/Sinus Tachycardia PE: Lungs: rhonchi Cor.: S1S2 Abd.: soft Ext.: no edema Neuro.: alert I/O= 1750/600 Labs noted. Echo: Severe LVD, EF 35 - 30%, no pericardial effusion. See report CT chest noted: diffuse alveolar infiltrates on left, hilar and mediastinal mass , etc Objective - Vital Signs/Intake and Output Vital Signs (last 24 hours): Temp Pulse Resp BP Pulse Ox 98.5 F 100 H 31 H 100/64 95 11/22/16 04:00 11/22/16 06:00 11/22/16 06:00 11/22/16 06:00 11/22/16 06:00 Intake and Output: 11/22/16 11/22/16 06:59 18:59 Intake Total 650 Output Total 600 Balance 50 - Medications Medications: Current Medications Acetaminophen (Tylenol 325mg Tab) 650 mg PO Q6H PRN PRN Reason: Pain, Mild (1-3) Albuterol/Ipratropium (Duoneb 3 Mg/0.5 Mg (3 Ml) Ud) 3 ml IH [id number] [facility] Last Admin: 11/22/16 07:11 Dose: 3 ml Aspirin (Ecotrin) 81 mg PO DAILY [facility] Last Admin: 11/21/16 09:06 Dose: Not Given Carvedilol (Coreg) 6.25 mg PO BID [facility] Last Admin: 11/21/16 09:06 Dose: Not Given Exemestane (Aromasin) 25 mg PO QPM [facility] Last Admin: 11/21/16 17:22 Dose: 25 mg Furosemide (Lasix) 40 mg PO QAM [facility] Last Admin: 11/21/16 09:06 Dose: Not Given Guaifenesin/Dextromethorphan (Robitussin Dm) 10 ml PO Q4H PRN PRN Reason: Cough Last Admin: 11/20/16 23:12 Dose: 10 ml Cefepime HCl (Maxipime 1gm) 1 gm in 100 mls @ 100 mls/hr IVPB Q8 FREDIS PRN Reason: Protocol Last Admin: 11/22/16 05:52 Dose: 100 mls/hr Vancomycin HCl (Vancomycin 1gm) 1 gm in 250 mls @ 167 mls/hr IVPB Q12H FREDIS PRN Reason: Protocol Last Admin: 11/22/16 02:00 Dose: 167 mls/hr Losartan Potassium (Cozaar) 25 mg PO QPM [facility] Last Admin: 11/21/16 18:24 Dose: 25 mg Non-Formulary Medication (Biotin [Biotin]) 1,000 mcg PO BID [facility] Last Admin: 11/21/16 18:23 Dose: Not Given Pantoprazole Sodium (Protonix Ec Tab) 40 mg PO 0600 [facility] Last Admin: 11/22/16 06:06 Dose: 40 mg Tramadol HCl (Ultram) 50 mg PO Q6H PRN PRN Reason: Pain, moderate (4-7) - Labs Labs: 11/22/16 05:25 11/22/16 05:25 PT 12.0 Seconds (9.9-11.8) H 11/20/16 17:10 INR 1.11 (0.93-1.08) H 11/20/16 17:10 APTT 24.9 Seconds (23.7-30.8) 11/20/16 17:10 Assessment and Plan - Assessment and Plan (Free Text) Assessment: Dyspnea/Cough/Large left pleural effusion/s/p large volume thoracentesis Abnormal CT chest with diffuse left sided alveolar infiltrates and hilar/ mediastinal masses Metastatic breast cancer/s/p mastectomy/ongoing chemotherapy/bone mets/possible recurrence in the left chest vs new primary CMP, chemo related CHF ICD FH of CAD Plan Continue cardiac meds As per oncology and pulmonary and intensivists OOB to chair as catrachito. Await pl. fluid analysis Possible FOB, possible pleurodesis, etc. Monitor labs, I/O, sats., etc.
[2016-11-22] MEDS: BIOTIN 1000 MCG PO SCH (09:58)
--- NOTE | 2016-11-22 11:40 | CP.CCUPN ---
<CHAYO WONG - Last Filed: 11/22/16 11:36> CCU Subjective - Physician Review Subjective (Free Text): 11/22/16 12:13 Patient seen and assessed at bedside. Patient has no new complaints at this time and reports no acute events overnight. She reports significant improvement in her previous SOB and cough. She denies any fever, chills, headache, changes in her vision, dysphagia, chest pain, palpitations, SOB, cough, abdominal pain, N/V, diarrhea, constipation, burning/pain with urination, or any numbness/ tingling/weakness of any extremity. CCU Objective - Vital Signs / Intake & Output Vital Signs (Last 4 hours): Vital Signs Temp Pulse BP 11/22/16 10:00 112 H 11/22/16 09:57 116 H 126/82 11/22/16 09:55 126/82 11/22/16 08:00 98.7 F Intake and Output (Last 8hrs): Intake & Output 11/21/16 11/22/16 11/22/16 22:59 06:59 14:59 Intake Total 1100 650 Output Total 600 Balance 1100 50 Weight 158 lb 6.4 oz Intake: IV 450 450 Left Wrist 450 450 Oral 650 200 Output: Urine 600 Urine, Voided 600 Other: # Bowel Movements 1 - Physical Exam Head: Positive for: Atraumatic, Normocephalic Pupils: Positive for: PERRL Extroacular Muscles: Positive for: EOMI Conjunctiva: Positive for: Normal Mouth: Positive for: Moist Mucous Membranes Pharnyx: Positive for: Normal Nose (External): Positive for: Atraumatic Neck: Positive for: Normal Range of Motion, Trachea Midline. Negative for: Meningeal Signs, JVD, Lymphadenopathy Respiratory/Chest: Positive for: Clear to Auscultation, Decreased Breath Sounds (L.R), Rhonchi (L>R). Negative for: Respiratory Distress, Accessory Muscle Use Cardiovascular: Positive for: Regular Rate and Rhythm, Normal S1, S2. Negative for: Murmurs Abdomen: Positive for: Normal Bowel Sounds. Negative for: Tenderness, Distention, Peritoneal Signs Breast/Axillary: Positive for: Other (R mastectomy) Back: Positive for: Normal Inspection Upper Extremity: Positive for: Normal Inspection. Negative for: Cyanosis, Edema Lower Extremity: Positive for: Normal Inspection. Negative for: Edema, CALF TENDERNESS Neurological: Positive for: GCS=15, CN II-XII Intact, Speech Normal Skin: Positive for: Warm, Dry, Normal Color. Negative for: Rashes Psychiatric: Positive for: Alert, Oriented x 3, Normal Insight, Normal Concentration - Medications Active Medications: Active Medications Generic Name Dose Route Start Last Admin Trade Name Freq PRN Reason Stop Dose Admin Acetaminophen 650 mg 11/20/16 21:48 Tylenol 325mg Tab PO Q6H PRN Pain, Mild (1-3) Albuterol/Ipratropium 3 ml 11/21/16 20:00 11/22/16 07:11 Duoneb 3 Mg/0.5 Mg (3 Ml) Ud IH 3 ml [id number] FREDIS Administration Aspirin 81 mg 11/21/16 10:00 11/22/16 09:57 Ecotrin PO 81 mg DAILY FREDIS Administration Carvedilol 6.25 mg 11/21/16 10:00 11/22/16 09:57 Coreg PO 6.25 mg BID FREDIS Administration Exemestane 25 mg 11/21/16 18:00 11/21/16 17:22 Aromasin PO 25 mg QPM FREDIS Administration Furosemide 40 mg 11/21/16 10:00 11/22/16 09:55 Lasix PO 40 mg QAM FREDIS Administration Guaifenesin/Dextromethorphan 10 ml 11/20/16 22:56 11/20/16 23:12 Robitussin Dm PO 10 ml Q4H PRN Administration Cough Cefepime HCl 1 gm in 100 mls @ 100 mls/hr 11/21/16 14:45 11/22/16 05:52 Maxipime 1gm IVPB 100 mls/hr Q8 FREDIS Administration Protocol Vancomycin HCl 1 gm in 250 mls @ 167 mls/hr 11/21/16 14:45 11/22/16 02:00 Vancomycin 1gm IVPB 167 mls/hr Q12H FREDIS Administration Protocol Losartan Potassium 25 mg 11/21/16 18:00 11/21/16 18:24 Cozaar PO 25 mg QPM FREDIS Administration Non-Formulary Medication 1,000 mcg 11/21/16 10:00 11/22/16 09:58 Biotin [Biotin] PO Not Given BID FREDIS Pantoprazole Sodium 40 mg 11/21/16 06:00 11/22/16 06:06 Protonix Ec Tab PO 40 mg 0600 FREDIS Administration Tramadol HCl 50 mg 11/20/16 21:48 Ultram PO Q6H PRN Pain, moderate (4-7) - Patient Studies Lab Studies: Microbiology Studies 11/20/16 22:16 MRSA Culture (Admit) - Final Nose MRSA NOT DETECTED 11/21/16 11:30 Gram Stain - Final Pleural Fluid Body Fluid Culture - Preliminary NO GROWTH AFTER 24 HOURS Lab Studies 11/22/16 11/22/16 11/21/16 Range/Units 05:25 05:25 11:30 WBC 10.3 D (4.5-11.0) 10^3/ul RBC 3.83 (3.5-6.1) 10^6/uL Hgb 11.6 L (12.0-16.0) g/dL Hct 35.6 L (36.0-48.0) % MCV 93.0 (80.0-105.0) fl MCH 30.3 (25.0-35.0) pg MCHC 32.6 (31.0-37.0) g/dl RDW 12.9 (11.5-14.5) % Plt Count 362 (120.0-450.0) 10^3/uL MPV 8.9 (7.0-11.0) fl Gran % 64.3 (50.0-68.0) % Lymph % (Auto) 19.1 L (22.0-35.0) % Pine % (Auto) 9.6 H (1.0-6.0) % Eos % (Auto) 6.4 H (1.5-5.0) % Baso % (Auto) 0.6 (0.0-3.0) % Gran # 6.59 H (1.4-6.5) Lymph # 2.0 (1.2-3.4) Pine # 1.0 H (0.1-0.6) Eos # 0.7 (0.0-0.7) Baso # 0.06 (0.0-2.0) K/mm3 Sodium 143 (132-148) mmol/L Potassium 3.8 (3.6-5.0) mmol/L Chloride 106 (98-107) mmol/L Carbon Dioxide 30 (21-33) mmol/L Anion Gap 11 (10-20) BUN 19 (7-21) mg/dL Creatinine 0.7 (0.5-1.4) mg/dL Est GFR ( Amer) > 60 Est GFR (Non-Af Amer) > 60 Random Glucose 104 (70-110) mg/dL Calcium 7.8 L (8.4-10.5) mg/dL Total Bilirubin 0.4 (0.2-1.3) mg/dL AST 32 (14-36) U/L ALT 35 (7-56) U/L Alkaline Phosphatase 63 (38-126) U/L Total Protein 6.5 (5.8-8.3) g/dL Albumin 3.1 (3.0-4.8) g/dL Globulin 3.4 gm/dL Albumin/Globulin Ratio 0.9 L (1.1-1.8) Procalcitonin (0.19-0.49) NG/ML Fluid Source Pleural Fluid Appearance Bloody (CLEAR) Fluid WBC 1293.0 H (0.0-300.0) /uL Fluid RBC 46383.0 H (0.0-0.0) /uL Fluid Tot Cell Count 100 H (0-0) Fluid Neutrophils 12.8 H (0-0) % Fluid Lymphocytes 87.2 H (0-0) % Fld Monocyte/Macrophag TEST NOT PERFORMED Fluid Comment Red color Pleural pH 11/21/16 11/21/16 Range/Units 11:30 10:01 WBC (4.5-11.0) 10^3/ul RBC (3.5-6.1) 10^6/uL Hgb (12.0-16.0) g/dL Hct (36.0-48.0) % MCV (80.0-105.0) fl MCH (25.0-35.0) pg MCHC (31.0-37.0) g/dl RDW (11.5-14.5) % Plt Count (120.0-450.0) 10^3/uL MPV (7.0-11.0) fl Gran % (50.0-68.0) % Lymph % (Auto) (22.0-35.0) % Pine % (Auto) (1.0-6.0) % Eos % (Auto) (1.5-5.0) % Baso % (Auto) (0.0-3.0) % Gran # (1.4-6.5) Lymph # (1.2-3.4) Pine # (0.1-0.6) Eos # (0.0-0.7) Baso # (0.0-2.0) K/mm3 Sodium (132-148) mmol/L Potassium (3.6-5.0) mmol/L Chloride (98-107) mmol/L Carbon Dioxide (21-33) mmol/L Anion Gap (10-20) BUN (7-21) mg/dL Creatinine (0.5-1.4) mg/dL Est GFR ( Amer) Est GFR (Non-Af Amer) Random Glucose (70-110) mg/dL Calcium (8.4-10.5) mg/dL Total Bilirubin (0.2-1.3) mg/dL AST (14-36) U/L ALT (7-56) U/L Alkaline Phosphatase (38-126) U/L Total Protein (5.8-8.3) g/dL Albumin (3.0-4.8) g/dL Globulin gm/dL Albumin/Globulin Ratio (1.1-1.8) Procalcitonin < 0.05 L (0.19-0.49) NG/ML Fluid Source Fluid Appearance (CLEAR) Fluid WBC (0.0-300.0) /uL Fluid RBC (0.0-0.0) /uL Fluid Tot Cell Count (0-0) Fluid Neutrophils (0-0) % Fluid Lymphocytes (0-0) % Fld Monocyte/Macrophag Fluid Comment Pleural pH 7.0 Laboratory Results - last 24 hr 11/21/16 11/21/16 11/21/16 10:01 11:30 11:30 WBC RBC Hgb Hct MCV MCH MCHC RDW Plt Count MPV Gran % Lymph % (Auto) Pine % (Auto) Eos % (Auto) Baso % (Auto) Gran # Lymph # Pine # Eos # Baso # Sodium Potassium Chloride Carbon Dioxide Anion Gap BUN Creatinine Est GFR ( Amer) Est GFR (Non-Af Amer) Random Glucose Calcium Total Bilirubin AST ALT Alkaline Phosphatase Total Protein Albumin Globulin Albumin/Globulin Ratio Procalcitonin < 0.05 L Fluid Source Pleural Fluid Appearance Bloody Fluid WBC 1293.0 H Fluid RBC 67808.0 H Fluid Tot Cell Count 100 H Fluid Neutrophils 12.8 H Fluid Lymphocytes 87.2 H Fld Monocyte/Macrophag TEST NOT PERFORMED Fluid Comment Red color Pleural pH 7.0 11/22/16 11/22/16 05:25 05:25 WBC 10.3 D RBC 3.83 Hgb 11.6 L Hct 35.6 L MCV 93.0 MCH 30.3 MCHC 32.6 RDW 12.9 Plt Count 362 MPV 8.9 Gran % 64.3 Lymph % (Auto) 19.1 L Pine % (Auto) 9.6 H Eos % (Auto) 6.4 H Baso % (Auto) 0.6 Gran # 6.59 H Lymph # 2.0 Pine # 1.0 H Eos # 0.7 Baso # 0.06 Sodium 143 Potassium 3.8 Chloride 106 Carbon Dioxide 30 Anion Gap 11 BUN 19 Creatinine 0.7 Est GFR ( Amer) > 60 Est GFR (Non-Af Amer) > 60 Random Glucose 104 Calcium 7.8 L Total Bilirubin 0.4 AST 32 ALT 35 Alkaline Phosphatase 63 Total Protein 6.5 Albumin 3.1 Globulin 3.4 Albumin/Globulin Ratio 0.9 L Procalcitonin Fluid Source Fluid Appearance Fluid WBC Fluid RBC Fluid Tot Cell Count Fluid Neutrophils Fluid Lymphocytes Fld Monocyte/Macrophag Fluid Comment Pleural pH Review of Systems - Review of Systems Review of Systems: Please refer to [facility] Critical Care Progress Note - Ventilator Checklist Head of Bed 30 Degrees: Yes PUD Prophalyxis: Yes DVT Prophylaxis: Yes - Extremities/Vascular Does the Patient have a Central Venous Catheter?: No Does the Patient need a Central Venous Catheter?: No Does the Patient have a Briones Catheter?: No Does the Patient need a Briones Catheter?: No - Prophylaxis GI Prophylaxis GI: PPI - Prophylaxis DVT Prophylaxis DVT: SCDs - Nutrition Nutrition: Nutrition Category Date Time Status Heart Healthy Diet [DIET] Diets 11/20/16 Breakfast Ordered Assessment/Plan - Assessment and Plan (Free Text) Assessment: 56 year old female with past medical history significant for stage IV ductal carcinoma of the breast s/p right mastectomy, on chemotherapy and hormone therapy, CHF with LVEF of 35-50%, who presented with SOB and significant left sided pleural effusion and new mass in hilum and right hepatic lobe presumed to be metastatic disease. A thoracocentesis was performed and 2900cc of pleural fluid drained. Plan: Neuro: -Continue to monitor for change in mental status Pulm: -Initial Chest CT showed large left pleural effusion, compressive atelectasis of left lung, complete collapse of the left lung in part relates to tumor mass with circumferential involvement of left pulmonary artery and left tracheobronchial tree at the level of the lobar bronchi, findings likely reflective of hepatic metastatic disease and sclerotic osseous metastatic disease, involving the left scapula -Repeat Chest CT s/p thoracocentesis showed minimal residual pleural effusion following thoracentesis, diffuse alveolar infiltrate in the left lung which is re-expanded and suspected left hilar mass and mediastinal adenopathy. -Serial chest x-rays showing improvement of effusion -Pleural fluid sent for cytological analysis, awaiting results -Continue Duonebs IH Q6RESP and Robitussin PO Q4H PRN -Continue pain control with Tylenol and Tramadol -Continue HOB elevation >30 degrees -Maintain SaO2 >90% -Pulm and IR consulted, appreciate all recommendations Cardio: -ECHO showed that LV has normal size and thickness and with an LVEF of 25-30% -EKG showed sinus tachycardia at 106bpm on admission -Continue ASA 81mg PO daily, Coreg 6.25mg PO BID, and Lasix 40mg PO daily -Cardiology consulted, all recommendations appreciated GI: -Heart healthy diet -Continue Protonix 40mg PO daily Renal: -Continue repletion of electrolytes as indicated -Monitoring with daily CMP, magnesium and phosphorous levels Endo: -Maintain euglycemia with BS between 140 and 180 ID: -Currently afebrile, normotensive, tachycardia and with no leukocytosis -All blood cultures, pleural fluid and MRSA cultures negative for growth since admission -Continues to have air bronchograms on ultrasound -Continue Vancomycin and Cefepime -ID consulted, all recommendations appreciated Hem/Onc: -Continue Aromasin -Pleural effusion and new hilar mass likely metastatic disease; fluid sent for cytological analysis, awaiting results -Heme/ONC consulted, all recommendations appreciated GI Prophylaxis: Protonix 40mg PO daily DVT Prophylaxis: SCD's Disposition: Patient with poor prognosis overall. Consideration to be given for palliative care consult pending heme/onc recommendations. Patient's presenting symptoms well controlled and clinically stable at this time. Will transfer to med/surg at this time. Patient seen and case discussed with attending, Dr. Yun. - Date & Time Date: 11/22/16 Time: 11:40 <Kwabena Yun - Last Filed: 11/22/16 13:04> CCU Objective - Vital Signs / Intake & Output Vital Signs (Last 4 hours): Vital Signs Temp Pulse Resp BP Pulse Ox 11/22/16 12:00 98 F 99 H 133/69 90 L 11/22/16 11:00 107 H 19 111/63 93 L 11/22/16 10:00 119 H 32 H 113/69 94 L 11/22/16 09:57 116 H 126/82 11/22/16 09:56 119 H 16 126/82 94 L 11/22/16 09:55 126/82 Intake and Output (Last 8hrs): Intake & Output 11/21/16 11/22/16 11/22/16 22:59 06:59 14:59 Intake Total 1100 650 240 Output Total 600 0 Balance 1100 50 240 Weight 158 lb 6.4 oz Intake: IV 450 450 0 Left Wrist 450 450 0 Oral 650 200 240 Output: Urine 600 0 Urine, Voided 600 0 Other: # Bowel Movements 1 0 - Medications Active Medications: Active Medications Generic Name Dose Route Start Last Admin Trade Name Freq PRN Reason Stop Dose Admin Acetaminophen 650 mg 11/20/16 21:48 Tylenol 325mg Tab PO Q6H PRN Pain, Mild (1-3) Albuterol/Ipratropium 3 ml 11/21/16 20:00 11/22/16 07:11 Duoneb 3 Mg/0.5 Mg (3 Ml) Ud IH 3 ml [id number] FREDIS Administration Aspirin 81 mg 11/21/16 10:00 11/22/16 09:57 Ecotrin PO 81 mg DAILY FREDIS Administration Carvedilol 6.25 mg 11/21/16 10:00 11/22/16 09:57 Coreg PO 6.25 mg BID FREDIS Administration Exemestane 25 mg 11/21/16 18:00 11/21/16 17:22 Aromasin PO 25 mg QPM FREDIS Administration Furosemide 40 mg 11/21/16 10:00 11/22/16 09:55 Lasix PO 40 mg QAM FREDIS Administration Guaifenesin/Dextromethorphan 10 ml 11/20/16 22:56 11/20/16 23:12 Robitussin Dm PO 10 ml Q4H PRN Administration Cough Cefepime HCl 1 gm in 100 mls @ 100 mls/hr 11/21/16 14:45 11/22/16 05:52 Maxipime 1gm IVPB 100 mls/hr Q8 FREDIS Administration Protocol Vancomycin HCl 1 gm in 250 mls @ 167 mls/hr 11/21/16 14:45 11/22/16 02:00 Vancomycin 1gm IVPB 167 mls/hr Q12H FREDIS Administration Protocol Losartan Potassium 25 mg 11/21/16 18:00 11/21/16 18:24 Cozaar PO 25 mg QPM FREDIS Administration Non-Formulary Medication 1,000 mcg 11/21/16 10:00 11/22/16 09:58 Biotin [Biotin] PO Not Given BID FREDIS Pantoprazole Sodium 40 mg 11/21/16 06:00 11/22/16 06:06 Protonix Ec Tab PO 40 mg 0600 FREDIS Administration Tramadol HCl 50 mg 11/20/16 21:48 Ultram PO Q6H PRN Pain, moderate (4-7) - Patient Studies Lab Studies: Microbiology Studies 11/20/16 22:16 MRSA Culture (Admit) - Final Nose MRSA NOT DETECTED 11/21/16 11:30 Gram Stain - Final Pleural Fluid Body Fluid Culture - Preliminary NO GROWTH AFTER 24 HOURS Lab Studies 11/22/16 11/22/16 11/21/16 Range/Units 05:25 05:25 10:01 WBC 10.3 D (4.5-11.0) 10^3/ul RBC 3.83 (3.5-6.1) 10^6/uL Hgb 11.6 L (12.0-16.0) g/dL Hct 35.6 L (36.0-48.0) % MCV 93.0 (80.0-105.0) fl MCH 30.3 (25.0-35.0) pg MCHC 32.6 (31.0-37.0) g/dl RDW 12.9 (11.5-14.5) % Plt Count 362 (120.0-450.0) 10^3/uL MPV 8.9 (7.0-11.0) fl Gran % 64.3 (50.0-68.0) % Lymph % (Auto) 19.1 L (22.0-35.0) % Pine % (Auto) 9.6 H (1.0-6.0) % Eos % (Auto) 6.4 H (1.5-5.0) % Baso % (Auto) 0.6 (0.0-3.0) % Gran # 6.59 H (1.4-6.5) Lymph # 2.0 (1.2-3.4) Pine # 1.0 H (0.1-0.6) Eos # 0.7 (0.0-0.7) Baso # 0.06 (0.0-2.0) K/mm3 Sodium 143 (132-148) mmol/L Potassium 3.8 (3.6-5.0) mmol/L Chloride 106 (98-107) mmol/L Carbon Dioxide 30 (21-33) mmol/L Anion Gap 11 (10-20) BUN 19 (7-21) mg/dL Creatinine 0.7 (0.5-1.4) mg/dL Est GFR ( Amer) > 60 Est GFR (Non-Af Amer) > 60 Random Glucose 104 (70-110) mg/dL Calcium 7.8 L (8.4-10.5) mg/dL Total Bilirubin 0.4 (0.2-1.3) mg/dL AST 32 (14-36) U/L ALT 35 (7-56) U/L Alkaline Phosphatase 63 (38-126) U/L Total Protein 6.5 (5.8-8.3) g/dL Albumin 3.1 (3.0-4.8) g/dL Globulin 3.4 gm/dL Albumin/Globulin Ratio 0.9 L (1.1-1.8) Procalcitonin < 0.05 L (0.19-0.49) NG/ML Laboratory Results - last 24 hr 11/21/16 11/22/16 11/22/16 10:01 05:25 05:25 WBC 10.3 D RBC 3.83 Hgb 11.6 L Hct 35.6 L MCV 93.0 MCH 30.3 MCHC 32.6 RDW 12.9 Plt Count 362 MPV 8.9 Gran % 64.3 Lymph % (Auto) 19.1 L Pine % (Auto) 9.6 H Eos % (Auto) 6.4 H Baso % (Auto) 0.6 Gran # 6.59 H Lymph # 2.0 Pine # 1.0 H Eos # 0.7 Baso # 0.06 Sodium 143 Potassium 3.8 Chloride 106 Carbon Dioxide 30 Anion Gap 11 BUN 19 Creatinine 0.7 Est GFR ( Amer) > 60 Est GFR (Non-Af Amer) > 60 Random Glucose 104 Calcium 7.8 L Total Bilirubin 0.4 AST 32 ALT 35 Alkaline Phosphatase 63 Total Protein 6.5 Albumin 3.1 Globulin 3.4 Albumin/Globulin Ratio 0.9 L Procalcitonin < 0.05 L Critical Care Progress Note - Nutrition Nutrition: Nutrition Category Date Time Status Heart Healthy Diet [DIET] Diets 11/20/16 Breakfast Ordered Assessment/Plan - Assessment and Plan (Free Text) Plan: Patient seen and examined on rounds with Dr Wong, agree with residents note, A /P. Patient is 56 year old female with past medical history significant for stage IV ductal carcinoma of the breast s/p right mastectomy, on chemotherapy and hormone therapy, CHF LVEF of 35-50%, presented with SOB and significant left sided pleural effusion and new mass in hilum and right hepatic lobe presumed to be metastatic disease. A thoracocentesis was performed and 2900cc of pleural fluid drained. Patient with PNA as well, on broad spectrum abx. Currently the patient is afebrile, HD stable, comfortable on 2LNC, sat 95%, with no major complaints. Repeat CT chest with consolidation of the L lung, and improvement in pleural effusion. Patient stable. Recommend: - supp o2 as needed - cont with rboad spectrum abx - follow up cultures - follow up ID - cont with Coreg, ASA - Pleural effusion likely result of metastatic spread - follow up Heme Onc - monitor FS - GI ppx - DVT ppx - transfer to regional medical floor, stable
--- NOTE | 2016-11-22 13:12 | RAD ---
HISTORY: . Pulmonary infiltrate COMPARISON: Chest 11/21/2026 FINDINGS: Right breast prosthesis. LUNGS: Previously noted near complete opacification left imtiaz thorax slightly improved. Mild right basilar atelectasis. . PLEURA: No definitive pneumothorax apparent. CARDIOVASCULAR: No change single lead pacemaker defibrillator. Heart size difficult to assess due to silhouetting left cardiac border OSSEOUS STRUCTURES: No significant abnormalities. VISUALIZED UPPER ABDOMEN: Normal. OTHER FINDINGS: None. IMPRESSION: Slight improvement previously noted near complete opacification left imtiaz thorax. Suspect right basilar atelectasis. No other changes.
--- NOTE | 2016-11-22 17:20 | CON ---
DATE: 11/22/2016 LOCATION: The patient seen in the ICU 128, bed 1. CHIEF COMPLAINT: Cough and shortness of breath times several days. HISTORY OF PRESENT ILLNESS: This is a 56-year-old female with past medical history of breast cancer with metastasis to the bone. The patient also with cardiomyopathy. The patient with a defibrillator pacer. Admitted with cough, nonproductive. No pleuritic chest pain. The patient was given Z-Pan as an outpatient. She took 4 days of it without improvement. There has been no fevers reported. There is shortness of breath. No abdominal pain, diarrhea or constipation. Denies any headaches. PAST MEDICAL HISTORY: Significant for hypertension, breast cancer with metastasis to the bone. The patient also had past surgical history significant for mastectomy, defibrillator. The patient does have cardiomyopathy also. ALLERGIES: THE PATIENT HAS NO KNOWN ALLERGIES. SOCIAL HISTORY: She works at [employer] in [place]. She has a dog. No travel outside the [place]. No exposure to tuberculosis. MEDICATIONS AT HOME: Include losartan, Lasix, carvedilol, aspirin. PHYSICAL EXAMINATION: GENERAL: The patient is seen in bed. She is awake and alert. Answering questions appropriately. VITAL SIGNS: Temperature of 98, heart rate of 101, respiratory rate of 28, blood pressure is low at 89/60. HEENT: Unremarkable. NECK: Supple. LUNGS: Decreased breath sounds. HEART: Normal S1 and S2. ABDOMEN: Soft, nontender. No organomegaly. No rebound. LABORATORY DATA: Reveals a white count of 10.3, it was 13.7 yesterday, hemoglobin of 11, the patient's platelets are 409, 85% granulocytosis coagulation. INR is 1.1, PT is 12, PTT is 24. ABGs are noted. Chemistries reveals a BUN of 19, creatinine of 0.7, procalcitonin 0.05. Pleural fluid reveals the patient has a white count of 1293 and mostly lymphocytosis. Microbiology reveals the blood cultures are negative. Pleural cultures are negative. Radiology, this morning's chest x-ray is pending. The patient had a CAT scan of the chest yesterday which reveals dense alveolar infiltrates throughout the left lung consistent with a pneumonia, suspected left hilar mass and mediastinal adenopathy, diffuse alveolar infiltrates in the left lung to be expanded. MEDICATIONS: Review of the medications revealed the patient started on vancomycin and cefepime. Dr. Ocampo's consultation is reviewed. Dr. Still's consultation is reviewed. ASSESSMENT AND PLAN: This is a 56-year-old female with breast cancer with metastasis to the bone, cardiomyopathy, hypertension, mastectomy, have defibrillator pacemaker with status post chemotherapy. Now presenting with cough, shortness of breath and hypotension with severe sepsis with left-sided healthcare associated pneumonia with a normal procalcitonin. Treated as outpatient with Z-Pan without improvement, most likely progression of her underlying malignancy, questionable liver metastasis and less large left effusion, probably a tumor mass. We will give a short course of antibiotics. If all cultures remain negative, we will discontinue vancomycin within the next 24 hours and continue the cefepime and we will follow closely with you. Overall prognosis quite poor for this patient with progression of underlying malignancy. Dennis Muñoz MD
--- NOTE | 2016-11-22 21:03 | PN ---
DATE: 11/22/2016 PULMONARY PROGRESS NOTE REFERRING PHYSICIAN: Dr. Magallanes. SUBJECTIVE: The patient is moved out of ICU, on med surg floor, sitting up in bed, feels little better, still has cough and shortness of breath. No nausea. No vomiting. No diarrhea. No leg pain or leg swelling. OBJECTIVE GENERAL: In no acute distress. VITAL SIGNS: Temperature is 98, heart rate is 99, respirator rate is 20, blood pressure 133/69, pulse ox 93% on nasal canula. HEENT: Moist mucous membranes. No oral thrush. NECK: Supple. No JVD. LUNGS: Have improved air flow on the left lung, crackles on the both lungs one-third. HEART: S1 and S2. ABDOMEN: Soft, nontender. No organomegaly. EXTREMITIES: There is no edema. NEUROLOGIC: Awake, alert, follows simple commands. MEDICATIONS: She is on Aromasin 25 mg daily, Biotin 1000 mcg twice a day, Coreg 6.25 mg twice a day, Cozaar 25 mg daily, DuoNeb q. 6 hours, Ecotrin 81 mg daily, Lasix 40 mg daily, cefepime 1 g IV q. 8 hours, Protonix 40 mg daily, Robitussin DM 10 mg q. 4 hours p.r.n., Tylenol p.r.n basis, Ultram 50 mg q. 6 hours p.r.n., vancomycin 1 g IV q. 12 hours. LABORATORY DATA: Shows hemoglobin is 11.6, hematocrit 35.6, WBC 10.3, platelet is 362. Sodium 143, potassium 3.8, chloride 106, bicarbonate 30, BUN 19, creatinine 0.7, glucose is 104, calcium is 7.8, AST 32, ALT 35, alk phos is 63, albumin is 3.1. Procalcitonin 0.05. Microbiology: Blood culture is negative. Pleural fluid so far, there is no growth. Chest x-ray done today shows slight improvement in the previously noted near-complete opacification of left hemithoraces, suspected right basilar atelectasis. IMPRESSION AND PLAN: Metastatic versus primary malignancy in the chest causing large pleural effusion and hilar mass. Also has scapular involvement with lytic lesion, status post volume thoracentesis, ended up with reexpansion pulmonary edema. Case discussed with Oncology services. Continue bronchodilator, pain medicine, antibiotics, incentive spirometer. Awaiting for cytology of the pleural fluid. Out of bed to chair, physical therapy. Thank you and we will follow with you. Lona Ocampo MD
--- NOTE | 2016-11-22 21:58 | PN ---
DATE: 11/22/2016 This is [facility] visit in the intensive care unit. For Dr. Magallanes. SUBJECTIVE: The patient is a 56-year-old female, seen lying, awake in bed, status post admission by the emergency room for severe shortness of breath with thoracentesis performed by Dr. Qamar Jasmine for a significant plural effusion. The patient now breathing much better after 2.9 liters of fluid was removed from the left side. The follow up testing did not show initial reexpansion of the lung. However, this is now improved as per Dr. Still and Dr. Ocampo, so there is no urgency for bronchoscopy as was originally considered with the patient possibly need eventually bronchoscopy in the near future. She has to be transferred to the [facility] floor if she has improved. OBJECTIVE: PHYSICAL EXAMINATION: VITAL SIGNS: Temperature 97.7, pulse is 102, respirations 19, blood pressure 113/72, pulse ox 98%. HEENT: Unremarkable. NECK: Supple. HEART: Tachy rate. Regular rhythm. LUNGS: Minimal decreased breath sounds on the left. Scattered rhonchi. ABDOMEN: Soft, nontender. EXTREMITIES: No edema. NEUROLOGIC: Awake, alert and oriented x3. As per Dr. Brown, the patient's echocardiogram showed severe left ventricular dysfunction with an ejection fraction of 30 to 35%. The patient had a repeat chest x-ray done earlier today, it was read as slight improvement and previously noted complete opacification, left hemithorax, suspect right basilar atelectasis, no other changes. With her CT scan of the chest done yesterday read as minimal residual plural effusion following thoracentesis, diffuse alveolar infiltrate left lung, which is reexpanded, suspected left hilar mass and mediastinal adenopathy. LABORATORY DATA: The patient's labs were done. White blood cells of count 10.3, hemoglobin level of 11.6, hematocrit 35.6, platelet count 362,000. Chem metabolic panel completely within normal range and procalcitonin level is 0.05. ASSESSMENT: For this patient is that of pleural effusion status post thoracentesis with good effect for respiratory distress, cardiomyopathy, pneumonia, defibrillator pacer, stage IV breast cancer with metastasis to the liver and bone. PLAN: The plan for this patient is to continue present medical regimen as consultants with consultants notes appreciated. The patient to restart her Xeloda next week with the medication being on hold for now. Antibiotics to continue. Prognosis for this patient guarded. We will monitory clinically and with labs. Hamilton Peraza MD
[2016-11-23] MEDS: guaiFENesin DM 200 mg-20 mg/10 ml UD PO PRN (01:18)
[2016-11-23] MEDS: Vancomycin 1gm in NS 250ml 1 GM/250 ML BAG IVPB SCH ×2 (01:50→15:59)
[2016-11-23] MEDS: Albuterol-Ipratrop 3 mg / 0.5 (3 ml) UD IH SCH ×4 (02:30→20:43)
[2016-11-23] MEDS: Cefepime 1gm in NS 100ml 1 GM/100 ML BAG IVPB SCH ×3 (05:34→21:37)
[2016-11-23] MEDS: Pantoprazole 40 mg EC Tab PO SCH (05:35)
[2016-11-23 06:57] LABS: BASO # 0.06 K/mm3 (0.0-2.0); BASO % 0.7 % (0.0-3.0); EOS # 0.8 (0.0-0.7); EOS % 8.9 % (1.5-5.0); GRAN # 5.58 (1.4-6.5); GRAN % 61.4 % (50.0-68.0); HEMATOCRIT 34.8 % (36.0-48.0); LYMPH # 1.9 (1.2-3.4); LYMPH % 21.3 % (22.0-35.0); MEAN CELL VOLUME 92.3 fl (80.0-105.0); MEAN CORPUSCULAR HGB CONC 32.5 g/dl (31.0-37.0); MEAN PLATELET VOLUME 8.9 fl (7.0-11.0); MONO # 0.7 (0.1-0.6); MONO % 7.7 % (1.0-6.0); RED CELL DISTRIBUTION WIDTH 12.9 % (11.5-14.5); WHITE BLOOD COUNT 9.1 10^3/ul (4.5-11.0)
--- NOTE | 2016-11-23 07:36 | CP.PCM.PN ---
Subjective - Date & Time of Evaluation Date of Evaluation: 11/23/16 Time of Evaluation: 07:00 - Subjective Subjective: Stable on 3R now. She feels OK. No CP or SOB. V/S noted. RSR/Sinus Tachycardia PE: Lungs: rhonchi Cor.: S1S2 Abd.: soft Ext.: no edema Neuro.: alert I/O= N/A Labs noted. Todays BMP pending Echo: Severe LVD, EF 25 - 30%, no pericardial effusion. See report CT chest noted: diffuse alveolar infiltrates on left, hilar and mediastinal mass , etc CXR 11/22: slight improvement Objective - Vital Signs/Intake and Output Vital Signs (last 24 hours): Temp Pulse Resp BP Pulse Ox 97.7 F 102 H 19 113/72 98 11/22/16 17:33 11/22/16 17:33 11/22/16 17:33 11/22/16 17:33 11/22/16 17:33 Intake and Output: 11/23/16 11/23/16 06:59 18:59 Intake Total 1050 Balance 1050 - Medications Medications: Current Medications Acetaminophen (Tylenol 325mg Tab) 650 mg PO Q6H PRN PRN Reason: Pain, Mild (1-3) Albuterol/Ipratropium (Duoneb 3 Mg/0.5 Mg (3 Ml) Ud) 3 ml IH [id number] [facility] Last Admin: 11/23/16 02:30 Dose: 3 ml Aspirin (Ecotrin) 81 mg PO DAILY [facility] Last Admin: 11/22/16 09:57 Dose: 81 mg Carvedilol (Coreg) 6.25 mg PO BID [facility] Last Admin: 11/22/16 17:09 Dose: 6.25 mg Exemestane (Aromasin) 25 mg PO QPM [facility] Last Admin: 11/22/16 17:08 Dose: 25 mg Furosemide (Lasix) 40 mg PO QAM [facility] Last Admin: 11/22/16 09:55 Dose: 40 mg Guaifenesin/Dextromethorphan (Robitussin Dm) 10 ml PO Q4H PRN PRN Reason: Cough Last Admin: 11/23/16 01:18 Dose: 10 ml Cefepime HCl (Maxipime 1gm) 1 gm in 100 mls @ 100 mls/hr IVPB Q8 [facility] PRN Reason: Protocol Last Admin: 11/23/16 05:34 Dose: 100 mls/hr Vancomycin HCl (Vancomycin 1gm) 1 gm in 250 mls @ 167 mls/hr IVPB Q12H [facility] PRN Reason: Protocol Last Admin: 11/23/16 01:50 Dose: 167 mls/hr Losartan Potassium (Cozaar) 25 mg PO QPM [facility] Last Admin: 11/22/16 17:08 Dose: 25 mg Non-Formulary Medication (Biotin [Biotin]) 1,000 mcg PO BID [facility] Last Admin: 11/22/16 09:58 Dose: Not Given Pantoprazole Sodium (Protonix Ec Tab) 40 mg PO 0600 [facility] Last Admin: 11/23/16 05:35 Dose: 40 mg Tramadol HCl (Ultram) 50 mg PO Q6H PRN PRN Reason: Pain, moderate (4-7) - Labs Labs: 11/23/16 06:00 11/22/16 05:25 PT 12.0 Seconds (9.9-11.8) H 11/20/16 17:10 INR 1.11 (0.93-1.08) H 11/20/16 17:10 APTT 24.9 Seconds (23.7-30.8) 11/20/16 17:10 Assessment and Plan - Assessment and Plan (Free Text) Assessment: Dyspnea/Cough/Large left pleural effusion/s/p large volume thoracentesis with re -expansion edema Abnormal CT chest with diffuse left sided alveolar infiltrates and hilar/ mediastinal masses Metastatic breast cancer/s/p mastectomy/ongoing chemotherapy/bone mets/possible recurrence in the left chest vs new primary CMP, chemo related CHF ICD FH of CAD Plan Continue cardiac meds As per oncology and pulmonary and Dr. Stu GOFF to chair as catrachito./Ambulate as catrachito. Await pl. fluid analysis and additional oncology recs. Monitor labs, I/O, sats., etc. Will follow.
[2016-11-23 07:55] LABS: ALB/GLOB RATIO 0.9 (1.1-1.8); ALKALINE PHOSPHATASE 64 U/L (38-126); ALT/SGPT 33 U/L (7-56); AST/SGOT 31 U/L (14-36); BILIRUBIN,TOTAL 0.4 mg/dL (0.2-1.3); BLOOD UREA NITROGEN 12 mg/dL (7-21); CALCIUM 7.5 mg/dL (8.4-10.5); CARBON DIOXIDE 26 mmol/L (21-33); CHLORIDE 107 mmol/L (98-107); GFR AFRICAN-AMERICAN > 60; GLUCOSE,RANDOM 99 mg/dL (70-110); POTASSIUM 3.5 mmol/L (3.6-5.0); SODIUM 143 mmol/L (132-148); TOTAL PROTEIN 6.4 g/dL (5.8-8.3)
[2016-11-23] MEDS ORDERED: Potassium Chloride 20 mEq ER Tab PO SCH (10:00)
[2016-11-23] MEDS: BIOTIN 1000 MCG PO SCH (10:15)
--- NOTE | 2016-11-23 14:08 | PN ---
DATE: 11/23/2016 SUBJECTIVE: The patient is in bed, in no acute distress. PHYSICAL EXAMINATION: VITAL SIGNS: Temperature is 98, blood pressure is 130/80, and respiratory rate of 16. HEENT: Unremarkable. NECK: Supple. LUNGS: Decreased breath sounds. HEART: Normal S1 and S2. ABDOMEN: Soft. LABORATORY DATA: Reveals the patient's white count of 9 this morning, hemoglobin of 11, and platelets of 372. BUN of 12 and creatinine of 0.6. The patient's pleural fluid is noted to be bloody pleural fluid. Procalcitonin is less than 0.05. Microbiology reveals a blood cultures negative, pleural fluid cultures negative and Dr. Hamilton Peraza's note is reviewed and Dr. Ocampo's note is reviewed. ASSESSMENT AND PLAN: This is a 56-year-old female with breast cancer with breast metastasis to the bone, cardiomyopathy, hypertension, mastectomy, defibrillator pacemaker and status post chemotherapy presenting with cough, shortness of breath, hypotension, severe sepsis, left-sided healthcare associated pneumonia, normal procalcitonin was treated as an outpatient with Z-Pan with minimal improvement, now with questionable liver metastasis, also large left effusion, most likely with continuation of malignancy because of bloody pleural fluid, primary lesion versus recurrence of the breast. We will continue the cefepime for now for a short course of antibiotics since the cultures including blood and pleural fluid negative and negative procalcitonin probably not infectious etiology. We will discontinue the antibiotics in the next 24 to 48 hours. On vancomycin and cefepime. Long-term prognosis poor. Dennis Muñoz MD
[2016-11-23] MEDS ORDERED: Potassium Chloride 20 mEq ER Tab PO ONE (17:29)
--- NOTE | 2016-11-23 18:12 | PN ---
DATE: 11/23/2016 This is the patient's hospital visit on the medical floor. For Dr. Magallanes. SUBJECTIVE: The patient is a 56-year-old female seen sitting up in a chair. Family at the bedside, status post admission by the emergency room for severe shortness of breath with significant pleural effusion noticed on exam with Dr. Qamar Jasmine removing 2.9 L of fluid from the left lung. The patient now breathing better; however, still with irritation to the posterior pharynx with cough with the patient otherwise in no acute distress. She has this spirometer at the bedside which she uses. OBJECTIVE: VITAL SIGNS: Temperature 98.2, pulse 100, respirations 18, blood pressure 133/86, her oxygen saturation is 96%. HEENT: Unremarkable. NECK: Supple. HEART: With pacer and defibrillator in situ. Regular rate. LUNGS: Rhonchi in the left. ABDOMEN: Soft and nontender. EXTREMITIES: No edema. SKIN: Warm and dry. NEUROLOGIC: Awake and alert, oriented x3. LABORATORY DATA: The patient's lab were done. White blood cell count of 9.1, hemoglobin 11.3, hematocrit 34.8, platelet count 372,000. Chem metabolic panel within normal range except for a potassium of 3.5 with a calcium of 7.5. Otherwise, normal chem metabolic panel. The patient's most recent chest x-ray was yesterday. It was read as slight improvement in previous noted near complete opacification of the left hemithorax, suspect right basilar atelectasis, no other changes. MEDICATIONS: The patient's medicine at this point include her exemestane, carvedilol, Cozaar, DuoNeb, Ecotrin, potassium which was given for replenishment of her potassium today, 2 doses, Lasix, cefepime, morphine, Protonix, Robitussin DM, Tylenol, tramadol, and vancomycin. The patient also received biotin which we will discontinue. ASSESSMENT: The assessment for this patient is that of respiratory failure with large pleural effusion on the left, status post thoracentesis of 2.9 L, history of cardiomyopathy, pneumonia, stage IV breast cancer with metastasis to the liver and bone, and defibrillator pacer. PLAN: After conversation with Dr. Magallanes to continue present medical regimen with further eval and testing as per Dr. Ocampo of pulmonary with replenishment of her low potassium orally with monitoring clinically and her labs. Prognosis for this patient is guarded. We will await the results of her thoracentesis and fluid for tissue pathology prior to bronchoscopy which may be necessary in the future as per Dr. Ocampo. Hamilton Peraza MD
--- NOTE | 2016-11-24 00:40 | PN ---
PULMONARY PROGRESS NOTE REFERRING PHYSICIAN: Hamilton Peraza MD SUBJECTIVE: She is on out of bed to chair. Feeling some shortness of breath. No hemoptysis, no hematemesis, no hematuria, no diarrhea. OBJECTIVE: GENERAL: In no acute distress. VITAL SIGNS: Temperature is 98, heart rate 98, respiratory rate is 20, blood pressure is 134/79, and pulse oximetry 99% on room air. HEENT: Moist mucous membranes. No oral thrush. Crowded airway. NECK: Supple. No JVD. LUNGS: Has a 1/3rd of decreased breath sounds on left side. HEART: S1 and S2. ABDOMEN: Soft, nontender. No organomegaly. EXTREMITIES: There is no edema. NEUROLOGIC: Awake and alert. Follows simple commands. MEDICATIONS: She is on Aromasin 25 mg daily, Coreg 6.25 mg twice a day, Cozaar 25 mg daily, albuterol Atrovent nebulizer q.6 hour, Ecotrin 81 mg daily, Lasix 40 mg daily, cefepime 1 g IV q.8 hour, Protonix 40 mg daily, Robitussin 10 mL q.4 hour p.r.n., Tylenol p.r.n. basis, Ultram 50 mg q.6 hour p.r.n., and vancomycin 1 g IV q.12 hour. LABORATORY DATA: Shows hemoglobin 11.3, hematocrit 34.8, WBC 9.1 and platelet count is 372. Sodium 143, potassium 3.5, chloride is 107, bicarbonate is 26, BUN 12, creatinine 0.6, glucose is 99, and calcium is 7.5. AST 31, ALT 33, alkaline phosphatase is 64 and albumin is 3.0. IMPRESSION AND PLAN: Recurrent cancer, large pleural effusion requiring volume thoracentesis end up with reexpansion pulmonary edema, does have a hilar mass, also scapular lesion. We will get PA and lateral chest x-ray, evaluate the reexpansion pulmonary edema. Clinically she is better than yesterday. Case discussed in detail with Dr. Magallanes. Yes, it does seems like she has a pleural base mass on the left side. According to Dr. Magallanes, they may need more tissue for the genotype, once she is stable. We will request Dr. Qamar Jasmine to do percutaneous biopsy. Continue bronchodilator, incentive spirometer, antibiotics, pain management, and physical therapy. Thank you and we will follow with you. Lona Ocampo MD
[2016-11-24] MEDS: Albuterol-Ipratrop 3 mg / 0.5 (3 ml) UD IH SCH ×4 (01:40→19:49)
[2016-11-24] MEDS: Vancomycin 1gm in NS 250ml 1 GM/250 ML BAG IVPB SCH ×2 (02:29→22:09)
[2016-11-24] MEDS: Cefepime 1gm in NS 100ml 1 GM/100 ML BAG IVPB SCH ×3 (05:44→22:09)
[2016-11-24] MEDS: Pantoprazole 40 mg EC Tab PO SCH (05:44)
[2016-11-24 06:08] LABS: BASO # 0.05 K/mm3 (0.0-2.0); BASO % 0.6 % (0.0-3.0); EOS # 0.7 (0.0-0.7); EOS % 8.4 % (1.5-5.0); GRAN # 4.62 (1.4-6.5); GRAN % 57.3 % (50.0-68.0); HEMATOCRIT 32.8 % (36.0-48.0); LYMPH # 2.1 (1.2-3.4); LYMPH % 25.7 % (22.0-35.0); MEAN CELL VOLUME 92.7 fl (80.0-105.0); MEAN CORPUSCULAR HEMOGLOBIN 30.2 pg (25.0-35.0); MEAN CORPUSCULAR HGB CONC 32.6 g/dl (31.0-37.0); MONO # 0.7 (0.1-0.6); WHITE BLOOD COUNT 8.1 10^3/ul (4.5-11.0)
[2016-11-24 06:15] LABS: ALB/GLOB RATIO 0.9 (1.1-1.8); ALKALINE PHOSPHATASE 66 U/L (38-126); ALT/SGPT 26 U/L (7-56); AST/SGOT 29 U/L (14-36); BILIRUBIN,TOTAL 0.3 mg/dL (0.2-1.3); BLOOD UREA NITROGEN 11 mg/dL (7-21); CALCIUM 7.7 mg/dL (8.4-10.5); CARBON DIOXIDE 26 mmol/L (21-33); CHLORIDE 111 mmol/L (98-107); GFR AFRICAN-AMERICAN > 60; GLUCOSE,RANDOM 95 mg/dL (70-110); POTASSIUM 3.8 mmol/L (3.6-5.0); SODIUM 145 mmol/L (132-148); TOTAL PROTEIN 5.9 g/dL (5.8-8.3)
--- NOTE | 2016-11-24 08:16 | CP.PCM.PN ---
Subjective - Date & Time of Evaluation Date of Evaluation: 11/24/16 Time of Evaluation: 07:00 - Subjective Subjective: Stable on 3R now. She feels OK. No CP or SOB. V/S noted. PE: Lungs: rhonchi Cor.: S1S2 Abd.: soft Ext.: no edema Neuro.: alert I/O= N/A Labs noted. K+= 3.8, H/H= 10.7/32.8 Echo: Severe LVD, EF 25 - 30%, no pericardial effusion. See report CT chest noted: diffuse alveolar infiltrates on left, hilar and mediastinal mass , etc CXR 11/22: slight improvement Objective - Vital Signs/Intake and Output Vital Signs (last 24 hours): Temp Pulse Resp BP Pulse Ox 98.5 F 98 H 19 124/79 99 11/23/16 18:38 11/23/16 18:38 11/23/16 18:38 11/23/16 18:38 11/23/16 18:38 Intake and Output: 11/24/16 11/24/16 06:59 18:59 Intake Total 750 Balance 750 - Medications Medications: Current Medications Acetaminophen (Tylenol 325mg Tab) 650 mg PO Q6H PRN PRN Reason: Pain, Mild (1-3) Albuterol/Ipratropium (Duoneb 3 Mg/0.5 Mg (3 Ml) Ud) 3 ml IH [id number] Last Admin: 11/24/16 08:05 Dose: 3 ml Aspirin (Ecotrin) 81 mg PO DAILY [facility] Last Admin: 11/23/16 10:22 Dose: 81 mg Carvedilol (Coreg) 6.25 mg PO BID [facility] Last Admin: 11/23/16 17:34 Dose: 6.25 mg Exemestane (Aromasin) 25 mg PO QPM [facility] Last Admin: 11/23/16 17:31 Dose: 25 mg Furosemide (Lasix) 40 mg PO QAM [facility] Last Admin: 11/23/16 10:21 Dose: 40 mg Guaifenesin/Dextromethorphan (Robitussin Dm) 10 ml PO Q4H PRN PRN Reason: Cough Last Admin: 11/23/16 01:18 Dose: 10 ml Cefepime HCl (Maxipime 1gm) 1 gm in 100 mls @ 100 mls/hr IVPB Q8 [facility] PRN Reason: Protocol Last Admin: 11/24/16 05:44 Dose: 100 mls/hr Vancomycin HCl (Vancomycin 1gm) 1 gm in 250 mls @ 167 mls/hr IVPB Q12H [facility] PRN Reason: Protocol Last Admin: 11/24/16 02:29 Dose: 167 mls/hr Losartan Potassium (Cozaar) 25 mg PO QPM [facility] Last Admin: 11/23/16 17:30 Dose: 25 mg Pantoprazole Sodium (Protonix Ec Tab) 40 mg PO 0600 [facility] Last Admin: 11/24/16 05:44 Dose: 40 mg Tramadol HCl (Ultram) 50 mg PO Q6H PRN PRN Reason: Pain, moderate (4-7) - Labs Labs: 11/24/16 05:40 11/24/16 05:40 PT 12.0 Seconds (9.9-11.8) H 11/20/16 17:10 INR 1.11 (0.93-1.08) H 11/20/16 17:10 APTT 24.9 Seconds (23.7-30.8) 11/20/16 17:10 Assessment and Plan - Assessment and Plan (Free Text) Assessment: Dyspnea/Cough/Large left pleural effusion/s/p large volume thoracentesis with re -expansion edema Abnormal CT chest with diffuse left sided alveolar infiltrates and hilar/ mediastinal masses Metastatic breast cancer/s/p mastectomy/ongoing chemotherapy/bone mets/possible recurrence in the left chest vs new primary CMP, chemo related CHF ICD FH of CAD Plan Continue cardiac meds As per oncology, ID, pulmonary and Dr. Stu GOFF to chair as catrachito./Ambulate as catrachito. Await pl. fluid analysis and additional pulmonary/oncology recs. Possible FOB, possible lung biopsy. Monitor labs, I/O, sats., etc. Will follow.
--- NOTE | 2016-11-24 13:01 | RAD ---
HISTORY: effusion COMPARISON: 11/22/2016. TECHNIQUE: Chest PA and lateral FINDINGS: LUNGS: There is mild pulmonary venous congestion. No focal consolidation in the right lung. PLEURA: There is a persistent moderate left pleural effusion. No pneumothorax apparent. CARDIOVASCULAR: There is mild cardiomegaly. There is stable position of a left-sided AICD. OSSEOUS STRUCTURES: No significant abnormalities. VISUALIZED UPPER ABDOMEN: Normal. OTHER FINDINGS: None. IMPRESSION: No change in moderate left pleural effusion. Left lower lobe airspace disease cannot be excluded. Follow-up is advised.
--- NOTE | 2016-11-24 15:14 | CP.PCM.PN ---
Subjective - Date & Time of Evaluation Date of Evaluation: 11/24/16 Time of Evaluation: 13:40 - Subjective Subjective: Feels comfortable, breathing better today, no fevers overnight. Objective - Vital Signs/Intake and Output Vital Signs (last 24 hours): Temp Pulse Resp BP Pulse Ox 98.6 F 99 H 20 121/80 98 11/24/16 08:14 11/24/16 10:50 11/24/16 08:14 11/24/16 10:51 11/24/16 08:14 Intake and Output: 11/24/16 11/24/16 06:59 18:59 Intake Total 750 360 Balance 750 360 - Medications Medications: Current Medications Acetaminophen (Tylenol 325mg Tab) 650 mg PO Q6H PRN PRN Reason: Pain, Mild (1-3) Albuterol/Ipratropium (Duoneb 3 Mg/0.5 Mg (3 Ml) Ud) 3 ml IH [id number] [facility] Last Admin: 11/24/16 08:05 Dose: 3 ml Aspirin (Ecotrin) 81 mg PO DAILY [facility] Last Admin: 11/24/16 10:51 Dose: 81 mg Carvedilol (Coreg) 6.25 mg PO BID [facility] Last Admin: 11/24/16 10:51 Dose: 6.25 mg Exemestane (Aromasin) 25 mg PO QPM [facility] Last Admin: 11/23/16 17:31 Dose: 25 mg Furosemide (Lasix) 40 mg PO QAM [facility] Last Admin: 11/24/16 10:51 Dose: 40 mg Guaifenesin/Dextromethorphan (Robitussin Dm) 10 ml PO Q4H PRN PRN Reason: Cough Last Admin: 11/23/16 01:18 Dose: 10 ml Cefepime HCl (Maxipime 1gm) 1 gm in 100 mls @ 100 mls/hr IVPB Q8 [facility] PRN Reason: Protocol Last Admin: 11/24/16 05:44 Dose: 100 mls/hr Vancomycin HCl (Vancomycin 1gm) 1 gm in 250 mls @ 167 mls/hr IVPB Q12H [facility] PRN Reason: Protocol Last Admin: 11/24/16 02:29 Dose: 167 mls/hr Losartan Potassium (Cozaar) 25 mg PO QPM [facility] Last Admin: 11/23/16 17:30 Dose: 25 mg Pantoprazole Sodium (Protonix Ec Tab) 40 mg PO 0600 [facility] Last Admin: 11/24/16 05:44 Dose: 40 mg Tramadol HCl (Ultram) 50 mg PO Q6H PRN PRN Reason: Pain, moderate (4-7) - Labs Labs: 11/24/16 05:40 11/24/16 05:40 PT 12.0 Seconds (9.9-11.8) H 11/20/16 17:10 INR 1.11 (0.93-1.08) H 11/20/16 17:10 APTT 24.9 Seconds (23.7-30.8) 11/20/16 17:10 - Constitutional Appears: Non-toxic, No Acute Distress - Head Exam Head Exam: NORMAL INSPECTION - ENT Exam ENT Exam: Mucous Membranes Moist - Neck Exam Neck Exam: absent: Lymphadenopathy, Meningismus - Respiratory Exam Respiratory Exam: Decreased Breath Sounds - Cardiovascular Exam Cardiovascular Exam: +S1, +S2 - GI/Abdominal Exam GI & Abdominal Exam: Soft. absent: Tenderness Assessment and Plan - Assessment and Plan (Free Text) Plan: Assessment R/O sepsis from left sided healthcare-associated pneumonia recurrent left-sided pleural effusion, probably related to cancer breast cancer with bone metastases S/P mastectomy S/P chemotherapy S/P AICD placement Plan On Cefepime (day 4) - target 4-7 days of therapy - pleural fluid cx and blood cx have been negative, PCt is <0.05 - will d/c antibiotics in the next 24 hours will monitor clinically
[2016-11-24] MEDS: Lidocaine 5% Patch TD SCH (22:15)
[2016-11-25] MEDS: Vancomycin 1gm in NS 250ml 1 GM/250 ML BAG IVPB SCH ×3 (00:14→09:51)
[2016-11-25] MEDS: Albuterol-Ipratrop 3 mg / 0.5 (3 ml) UD IH SCH ×4 (02:46→19:41)
--- NOTE | 2016-11-25 03:05 | PN ---
DATE: 11/24/2016 REFERRING PHYSICIAN: Hamilton Peraza MD SUBJECTIVE: The patient is out of bed to chair. Night was unremarkable. Feels a little better. Decreased cough. Decreased shortness of breath. No nausea, no vomiting, no diarrhea. No leg pain, no leg swelling. PHYSICAL EXAMINATION GENERAL: In no acute distress. VITAL SIGNS: Temperature is 98, heart rate is 108, respiratory rate is 20, blood pressure 124/81, pulse ox 93% on room air. HEENT: Moist mucous membranes. No oral thrush noted. NECK: Supple. No JVD. HEART: S1, S2. LUNGS: Decreased breath sounds half way up from the left side. ABDOMEN: Soft, nontender. No organomegaly. EXTREMITIES: There is no edema. NEUROLOGIC: Awake, alert. Follows simple commands. LABORATORY DATA: Shows hemoglobin 10.7, hematocrit 32.8, WBC 8.1, platelets 367. Sodium 145, potassium 3.8, chloride 111, bicarbonate 26, BUN 11, creatinine 0.6, glucose 95, calcium is 7.7, AST 29, ALT 26, alkaline phosphatase is 86, albumin is 2.8. Chest x-ray done yesterday shows moderate left pleural effusion. MEDICATIONS: She is on Aromasin 25 mg daily, Coreg 6.25 mg twice a day, Cozaar 25 mg daily, albuterol, Atrovent nebulizer q. 6 hours, Ecotrin 81 mg daily, Lasix 40 mg daily, Lidoderm patch on affected area, cefepime 1 g IV q. 8 hours, Protonix 40 mg daily, Robitussin DM 10 mL q. 4 hours p.r.n., Tylenol p.r.n., Ultram 50 mg q. 6 hours p.r.n., vancomycin 1 g IV q. 12 hours. IMPRESSION AND PLAN: Recurrent cancer, large pleural effusion, requiring large volume thoracentesis and with reexpansion pulmonary edema, has a hilar mass, also scapular lesion. There is also pleural-based density. Case discussed with Dr. Magallanes, waiting for cytology from pleural effusion. If no answer, may need a transthoracic needle biopsy of the pleural lesion. Continue bronchodilator, antibiotics, incentive spirometer. Thank you and we will follow with you. Lona Ocampo MD
[2016-11-25 05:47] LABS: BASO # 0.06 K/mm3 (0.0-2.0); BASO % 0.6 % (0.0-3.0); EOS % 10.4 % (1.5-5.0); GRAN # 5.47 (1.4-6.5); GRAN % 58.3 % (50.0-68.0); HEMATOCRIT 33.9 % (36.0-48.0); LYMPH # 2.1 (1.2-3.4); LYMPH % 22.3 % (22.0-35.0); MEAN CELL VOLUME 92.4 fl (80.0-105.0); MEAN CORPUSCULAR HEMOGLOBIN 30.2 pg (25.0-35.0); MEAN CORPUSCULAR HGB CONC 32.7 g/dl (31.0-37.0); MEAN PLATELET VOLUME 8.8 fl (7.0-11.0); MONO # 0.8 (0.1-0.6); MONO % 8.4 % (1.0-6.0); RED CELL DISTRIBUTION WIDTH 12.9 % (11.5-14.5); WHITE BLOOD COUNT 9.4 10^3/ul (4.5-11.0)
[2016-11-25] MEDS: Cefepime 1gm in NS 100ml 1 GM/100 ML BAG IVPB SCH (06:45)
[2016-11-25] MEDS: Pantoprazole 40 mg EC Tab PO SCH (06:46)
[2016-11-25 07:14] LABS: ALB/GLOB RATIO 0.8 (1.1-1.8); ALKALINE PHOSPHATASE 70 U/L (38-126); ALT/SGPT 31 U/L (7-56); AST/SGOT 46 U/L (14-36); BILIRUBIN,TOTAL 0.5 mg/dL (0.2-1.3); BLOOD UREA NITROGEN 12 mg/dL (7-21); CALCIUM 8.2 mg/dL (8.4-10.5); CARBON DIOXIDE 28 mmol/L (21-33); CHLORIDE 108 mmol/L (95-110); GFR AFRICAN-AMERICAN > 60; GLUCOSE,RANDOM 99 mg/dL (70-110); POTASSIUM 4.1 mmol/L (3.6-5.0); SODIUM 142 mmol/L (132-148); TOTAL PROTEIN 6.3 g/dL (5.8-8.3)
--- NOTE | 2016-11-25 07:44 | CP.PCM.PN ---
Subjective - Date & Time of Evaluation Date of Evaluation: 11/25/16 Time of Evaluation: 07:00 - Subjective Subjective: Stable on 3R. She feels OK. No CP or SOB. V/S noted. PE: Lungs: L > R rhonchi Cor.: S1S2 Abd.: soft Ext.: no edema Neuro.: alert I/O= N/A Labs noted Echo: Severe LVD, EF 25 - 30%, no pericardial effusion. See report CT chest noted: diffuse alveolar infiltrates on left, hilar and mediastinal mass , etc CXR 11/24: no change Objective - Vital Signs/Intake and Output Vital Signs (last 24 hours): Temp Pulse Resp BP Pulse Ox 98.3 F 108 H 20 124/81 93 L 11/24/16 16:00 11/24/16 18:05 11/24/16 16:00 11/24/16 18:05 11/24/16 16:00 Intake and Output: 11/25/16 11/25/16 06:59 18:59 Intake Total 1440 Output Total 700 Balance 740 - Medications Medications: Current Medications Acetaminophen (Tylenol 325mg Tab) 650 mg PO Q6H PRN PRN Reason: Pain, Mild (1-3) Albuterol/Ipratropium (Duoneb 3 Mg/0.5 Mg (3 Ml) Ud) 3 ml IH [id number] [facility] Last Admin: 11/25/16 02:46 Dose: Not Given Aspirin (Ecotrin) 81 mg PO DAILY [facility] Last Admin: 11/24/16 10:51 Dose: 81 mg Carvedilol (Coreg) 6.25 mg PO BID [facility] Last Admin: 11/24/16 18:05 Dose: 6.25 mg Exemestane (Aromasin) 25 mg PO QPM [facility] Last Admin: 11/24/16 18:05 Dose: 25 mg Furosemide (Lasix) 40 mg PO QAM [facility] Last Admin: 11/24/16 10:51 Dose: 40 mg Guaifenesin/Dextromethorphan (Robitussin Dm) 10 ml PO Q4H PRN PRN Reason: Cough Last Admin: 11/23/16 01:18 Dose: 10 ml Cefepime HCl (Maxipime 1gm) 1 gm in 100 mls @ 100 mls/hr IVPB Q8 [facility] PRN Reason: Protocol Last Admin: 11/25/16 06:45 Dose: Not Given Vancomycin HCl (Vancomycin 1gm) 1 gm in 250 mls @ 167 mls/hr IVPB Q12 [facility] PRN Reason: Protocol Last Admin: 11/24/16 22:09 Dose: 167 mls/hr Lidocaine (Lidoderm) 1 ea TD DAILY [facility] Last Admin: 11/24/16 22:15 Dose: 1 ea Losartan Potassium (Cozaar) 25 mg PO QPM [facility] Last Admin: 11/24/16 18:06 Dose: 25 mg Pantoprazole Sodium (Protonix Ec Tab) 40 mg PO 0600 [facility] Last Admin: 11/25/16 06:46 Dose: Not Given Tramadol HCl (Ultram) 50 mg PO Q6H PRN PRN Reason: Pain, moderate (4-7) - Labs Labs: 11/25/16 05:15 11/25/16 05:15 PT 12.0 Seconds (9.9-11.8) H 11/20/16 17:10 INR 1.11 (0.93-1.08) H 11/20/16 17:10 APTT 24.9 Seconds (23.7-30.8) 11/20/16 17:10 Assessment and Plan - Assessment and Plan (Free Text) Assessment: Dyspnea/Cough/Large left pleural effusion/s/p large volume thoracentesis with re -expansion edema Abnormal CT chest with diffuse left sided alveolar infiltrates and hilar/ mediastinal masses Metastatic breast cancer/s/p mastectomy/ongoing chemotherapy/bone mets/possible recurrence in the left chest vs new primary CMP, chemo related CHF ICD FH of CAD Plan: Continue cardiac meds As per oncology, ID, pulmonary and Dr. Stu GOFF to chair as catrachito./Ambulate as catrachito. Await pl. fluid analysis and additional pulmonary/oncology recs. Possible FOB, possible lung biopsy. Monitor labs, I/O, sats., etc. Will follow.
--- NOTE | 2016-11-25 09:04 | PN ---
LOCATION: The patient is in room 365, bed 2. SUBJECTIVE: The patient is comfortable. She is sitting out of bed. She walked once around the nursing station. She is breathing better today. No fevers overnight. No nausea, vomiting, fevers or chills. MEDICATIONS: The patient's medications were reviewed. She is on Tylenol 650 mg q.4 h. p.r.n. She is on DuoNeb q.6 hours inhaled as needed. She is on Ecotrin 81 mg p.o. daily, carvedilol 6.25 mg p.o. b.i.d., Aromasin 25 mg daily, Lasix (furosemide) 40 mg p.o. daily. She is on Robitussin DM 10 mL p.o. q.4 hours. She is on cefepime 1 g IV q.8 hours and vancomycin 1 g IV piggyback q.12 hours. She is on losartan 25 mg p.o. daily. She is on Protonix 40 mg p.o. daily. She is on tramadol 50 mg p.o. q.6 h. p.r.n. PHYSICAL EXAMINATION: VITAL SIGNS: T-max is 98.6, pulse is 99, respirations 20, blood pressure 121/80 with a pulse ox of 98%. GENERAL: The patient is afebrile, in no acute distress. HEENT: Head is normocephalic and atraumatic. Conjunctivae pale. Sclerae is anicteric. Pupils are equally reactive to light and accommodation. Examination of the oropharynx; there are no oropharyngeal lesions. NECK: Supple. There is no adenopathy. No jugular venous distention noted. CHEST: Revealed the patient to be status post mastectomy in the right side with saline implant. Left breast is unremarkable. Axillary negative. Supraclavicular nodes are negative. LUNGS: Revealed decreased breath sounds in the left base. Right lung is normal. HEART: Revealed S1 and S2 to be normal. No gallop is heard at this time. The patient is slightly tachycardic. ABDOMEN: Soft, nontender. Bowel sounds are present. Liver and spleen are not palpable. No other masses are felt. AND RECTAL: Deferred. NEUROLOGICAL: There are no focal deficits. LABORATORY DATA: Reveals a white count of 8.1, hemoglobin 10.7, hematocrit 32.8, and platelet count 367,000. Sodium 140, potassium 3.8, chloride 111, CO2 26, BUN of 11, creatinine of 0.6, and blood sugar of 95. PT/INR is within normal limits. ASSESSMENT NOTES AND PLAN: The patient is a 56-year-old female with recurrent metastatic stage IV carcinoma of the breast that occurred after 17 years. Documents have recurrence on the last PET CT scan in the subcutaneous area in the form of jayashree metastasis in the neck plus bone metastasis in the scapula and in the spine on outpatient Xgeva, Xeloda, and Faslodex. She is now admitted with worsening shortness of breath and white out of the left lung on the chest x-ray and she was seen by the horticultural farm manager for increasing shortness of breath. The patient's fluid was tapped, a large volume of fluid was removed from the left side probably related to underlying malignancy and the patient is now recovering post tapping in a very nice fashion. Fluid specimen has to be consistent with metastatic carcinoma, we are waiting for the results, which are not available yet. Followup CAT scan showed rebound edema in the lungs of underlying infection and the lung was completely atelectatic is a possibility and the patient has been put on a broad spectrum antibiotics. The patient has AICD in the left chest wall and she had it for a significant period of time . Hector Magallanes MD
[2016-11-25] MEDS ORDERED: Lidocaine 5% Patch TD SCH (10:00)
--- NOTE | 2016-11-25 12:28 | CP.PCM.PN ---
Subjective - Date & Time of Evaluation Date of Evaluation: 11/25/16 Time of Evaluation: 11:10 - Subjective Subjective: Comfortable, no fevers. Objective - Vital Signs/Intake and Output Vital Signs (last 24 hours): Temp Pulse Resp BP Pulse Ox 98.8 F 105 H 22 131/78 94 L 11/25/16 08:55 11/25/16 08:55 11/25/16 08:55 11/25/16 08:55 11/25/16 08:55 Intake and Output: 11/25/16 11/25/16 06:59 18:59 Intake Total 1440 Output Total 700 Balance 740 - Medications Medications: Current Medications Acetaminophen (Tylenol 325mg Tab) 650 mg PO Q6H PRN PRN Reason: Pain, Mild (1-3) Albuterol/Ipratropium (Duoneb 3 Mg/0.5 Mg (3 Ml) Ud) 3 ml IH [id number] [facility] Last Admin: 11/25/16 08:23 Dose: 3 ml Aspirin (Ecotrin) 81 mg PO DAILY [facility] Last Admin: 11/24/16 10:51 Dose: 81 mg Carvedilol (Coreg) 6.25 mg PO BID [facility] Last Admin: 11/24/16 18:05 Dose: 6.25 mg Exemestane (Aromasin) 25 mg PO QPM [facility] Last Admin: 11/24/16 18:05 Dose: 25 mg Furosemide (Lasix) 40 mg PO QAM [facility] Last Admin: 11/24/16 10:51 Dose: 40 mg Guaifenesin/Dextromethorphan (Robitussin Dm) 10 ml PO Q4H PRN PRN Reason: Cough Last Admin: 11/23/16 01:18 Dose: 10 ml Cefepime HCl (Maxipime 1gm) 1 gm in 100 mls @ 100 mls/hr IVPB Q8 [facility] PRN Reason: Protocol Last Admin: 11/25/16 06:45 Dose: Not Given Vancomycin HCl (Vancomycin 1gm) 1 gm in 250 mls @ 167 mls/hr IVPB Q12 [facility] PRN Reason: Protocol Last Admin: 11/24/16 22:09 Dose: 167 mls/hr Lidocaine (Lidoderm) 1 ea TD DAILY [facility] Last Admin: 11/24/16 22:15 Dose: 1 ea Losartan Potassium (Cozaar) 25 mg PO QPM [facility] Last Admin: 11/24/16 18:06 Dose: 25 mg Pantoprazole Sodium (Protonix Ec Tab) 40 mg PO 0600 [facility] Last Admin: 11/25/16 06:46 Dose: Not Given Tramadol HCl (Ultram) 50 mg PO Q6H PRN PRN Reason: Pain, moderate (4-7) - Labs Labs: 11/25/16 05:15 11/25/16 05:15 PT 12.0 Seconds (9.9-11.8) H 11/20/16 17:10 INR 1.11 (0.93-1.08) H 11/20/16 17:10 APTT 24.9 Seconds (23.7-30.8) 11/20/16 17:10 - Constitutional Appears: Non-toxic, No Acute Distress - Head Exam Head Exam: NORMAL INSPECTION - ENT Exam ENT Exam: Mucous Membranes Moist - Neck Exam Neck Exam: absent: Lymphadenopathy, Meningismus - Respiratory Exam Respiratory Exam: Decreased Breath Sounds - Cardiovascular Exam Cardiovascular Exam: +S1, +S2 - GI/Abdominal Exam GI & Abdominal Exam: Soft. absent: Tenderness Assessment and Plan - Assessment and Plan (Free Text) Plan: Assessment R/O sepsis from left sided healthcare-associated pneumonia; patient is clinically improved recurrent left-sided pleural effusion, probably related to cancer breast cancer with bone metastases S/P mastectomy S/P chemotherapy S/P AICD placement Plan On Cefepime (day 5) and Vancomycin - target 4-7 days of therapy - pleural fluid cx and blood cx have been negative, PCt is <0.05 - will d/c antibiotics today will continue to monitor clinically
[2016-11-25 17:42] VITALS: RESP 20
--- NOTE | 2016-11-26 01:18 | PN ---
DATE: 11/25/2016 PULMONARY PROGRESS NOTE REFERRING PHYSICIAN: Dr. Magallanes. SUBJECTIVE: Subjectively, she is out of bed to chair. Night was unremarkable. Able to ambulate with the help of therapist. No cough. No sputum production. Breathing is little better. No nausea, no vomiting, no diarrhea. No leg pain or leg swelling. OBJECTIVE: GENERAL: In no acute distress. VITAL SIGNS: Temperature is 98, heart rate is 105, respiratory rate is 20, blood pressure is 117/75, and pulse ox is 97% on nasal cannula. HEENT: Moist mucous membranes. No ulcer or oral thrush. NECK: Supple. No JVD. LUNGS: Has a 1/3rd of decreased breath sounds on the left side. HEART: S1 and S2. ABDOMEN: Soft and nontender. No organomegaly. EXTREMITIES: There is no edema. NEUROLOGIC: Awake, alert, and follow simple commands. MEDICATIONS: She is on Aromasin 25 mg daily, Coreg 6.125 mg daily, Cozaar 25 mg daily, DuoNeb q. 6 hours, Ecotrin 81 mg daily, Lasix 40 mg daily, lidocaine patch daily, Protonix 40 mg daily, Robitussin DM 10 mL q. 4 hours p.r.n., Tylenol p.r.n., and Ultram 50 mg q. 6 hours p.r.n. LABORATORY DATA: Shows hemoglobin 11.1, hematocrit 33.9, WBC 9.4, and platelet count is 370. Sodium 142, potassium 4.1, chloride 108, bicarbonate 28, BUN 12, creatinine 0.6, glucose 99, calcium is 8.2, AST is 46, ALT is 31, alkaline phosphatase is 70, and albumin is 2.8. IMPRESSION AND PLAN: Recurrent cancer, large pleural effusion, requiring large volume thoracentesis with reexpansion to pulmonary edema, hilar mass, scapular lesion, also has a pleural-based lesion. Pulmonary point of view, clinically she is much better. Continue bronchodilator and incentive spirometer. Awaiting for cytology report from fluid. Thank you and we will follow with you. Lona Ocampo MD
[2016-11-26] MEDS: Albuterol-Ipratrop 3 mg / 0.5 (3 ml) UD IH SCH ×3 (01:54→13:07)
[2016-11-26] MEDS: Pantoprazole 40 mg EC Tab PO SCH (06:20)
[2016-11-26 08:57] VITALS: TEMP 99; O2SAT 95
[2016-11-26] MEDS: Lidocaine 5% Patch TD SCH ×2 (09:38→09:41)
--- NOTE | 2016-11-26 10:09 | US ---
PROCEDURE: Ultrasound guided left thoracentesis. CLINICAL HISTORY: Lung carcinoma. Large left pleural effusion. Shortness of breath. Needs thoracentesis. PHYSICIAN(S): Qamar Jasmine MD. TECHNIQUE: The relative risks and indications of the procedure were explained to the patient and consent obtained. The patient was placed in a sitting position on the stretcher and sonography of the left chest performed. This revealed a moderate to large leftpleural effusion. A left posterolateral intercostal approach was selected and the area prepped and draped usual sterile fashion. 1% Xylocaine was used to anesthetize the skin and soft tissues. A 7 [place] thoracentesis catheter was trocared into the right pleural cavity and 2900of serosanguineous fluid aspirated. A cytology specimen was sent. IMPRESSION: 1. Ultrasound guided left thoracentesis. 2900 of serosanguineousfluid were aspirated.
--- NOTE | 2016-11-26 10:13 | US ---
PROCEDURE: Bilateral chest ultrasound HISTORY: Lung carcinoma. Large left pleural effusion. Shortness of breath. PHYSICIAN(S): Qamar Jasmine MD. TECHNIQUE: FINDINGS: There is a moderate to large left pleural effusion present. No significant right pleural effusion is appreciated. IMPRESSION: Large left pleural effusion.
--- NOTE | 2016-11-26 11:17 | PN ---
DATE: 11/25/2016 SUBJECTIVE: The patient is sitting out of bed in chair. Neck was unremarkable. The patient is able to ambulate with any significant cough or sputum production. Breathing is a little bit better. No nausea, no vomiting, no diarrhea, no leg pain, no leg swelling, no hemoptysis, no chest pain, no fevers or chills. OBJECTIVE: GENERAL: The patient is in no acute distress. VITAL SIGNS: Stable. T-max of 98.4, heart rate is 102, respiration is 20, blood pressure is 117/75, O2 saturation is 97% on nasal cannula. HEENT: Head is normocephalic and atraumatic. No ulcerations are noted. NECK: Supple. There is no jugular venous distension noted. LUNGS: Has one-third decreased breath on the left side. HEART: S1 and S2 are normal. No gallop or murmur is heard. ABDOMEN: Soft and nontender. Liver and spleen not palpable. EXTREMITIES: Reveals no cyanosis, clubbing, or edema. NEUROLOGIC: Higher functions are normal. No focal deficits are noted. LABORATORY DATA: Reveals at this time, hemoglobin is 11, hematocrit 33, white count 9.4, and platelet count 370. Sodium 142, potassium 4.1, chloride 108, BUN 12, creatinine 0.6, glucose 99, calcium is 8.2, AST is 46, ALT is 31, alkaline phosphatase is 70, and albumin is 2.8. MEDICATIONS: Reviewed. She is on Aromasin 25 mg daily, Coreg 6.25 mg daily, Cozaar 35 mg daily, DuoNeb q. 6 hours, Ecotrin 81 mg daily, Lasix 40 mg daily, Lidoderm patch, Protonix 40 mg daily, Robitussin DM 10 mL q. 4 hours for cough, Tylenol p.r.n., and Ultram p.r.n. She is also on a Lidoderm patch. ASSESSMENT NOTES AND PLAN: The report on the pleural fluid cytology is still pending, will be available later on during the day, but our impression is that this is recurrent breast cancer with large pleural effusion requiring large volume thoracentesis with reexpansion pulmonary edema, hilar mass, scapular lesion, and also pleural based lesion. Clinically, the patient is better from the pulmonary point of view, but we will continue to monitor the patient very closely till we get the result of the pleural fluid and know in which direction to go. Continue incentive spirometer in the meantime. Question is where do we proceed from here. A detailed discussion with the patient. We spoke to the pathologist. If the fluid has attempt to come back within 3-4 days, then we will have to make a decision about maybe placement of a PleurX catheter while we treat her with systemic chemotherapy at this point in time. In addition to the PleurX catheter would be to assess her for any other systemic therapy that maybe feasible and the question is whether the patient will be able to tolerate it as she has significant cardiomyopathy, has a defibrillator in place and we have to make sure that there is no question of any significant issues from the perspective of the cardiomyopathy selection of the drugs directed towards cancer. Testing materials would also be sent to [facility] as well to see if there any actionable genes against which we could direct our treatments. Routine post-exam instructions have been given to the patient. Chest x-ray for the a.m. will also be requested. Hector Magallanes MD
--- NOTE | 2016-11-26 12:09 | PN ---
DATE: 11/26/2016 SUBJECTIVE: The patient was seen sitting in chair on telemetry. She states she is currently comfortable. She denies any dyspnea at rest. CURRENT MEDICATIONS: Include Aromasin, carvedilol 6.25 mg b.i.d., Cozaar 25 mg daily, DuoNeb inhaler, Ecotrin, Lasix 40 mg daily, Protonix, Ultram, and Lidoderm patch. OBJECTIVE: GENERAL: She is a middle aged woman who appears comfortable at the present time. VITAL SIGNS: Her blood pressure is 140/48 with a pulse of 96 regular, respirations of 14. She is afebrile. HEENT: No JVD. CHEST: Diminished breath sounds noted at the left base. Few scattered rhonchi heard. HEART: PMI displaced laterally with soft tones noted. ABDOMEN: Soft and nontender. Normoactive bowel sounds. EXTREMITIES: No edema. DIAGNOSTIC DATA: No blood work pending from this morning. IMPRESSION: 1. Status post thoracentesis of large left pleural effusion. 2. 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 3. Status post implantable cardioverter-defibrillator implant. 4. Metastatic breast cancer. RECOMMENDATION: Her current cardiac medications will continue. Fluid cytology results will be reviewed. Followup chest x-ray to monitor for potential reoccurrence of her effusion will be necessary. Her prognosis remains guarded. We will be happy to continue to follow and make further recommendations as appropriate. Twan Burch MD
[2016-11-26 17:34] VITALS: BP 124/84; PULSE 102
--- NOTE | 2016-11-26 18:42 | PN ---
DATE: 11/26/2016 PULMONARY PROGRESS NOTE REFERRING PHYSICIAN: Dr. Hamilton Peraza. SUBJECTIVE: She is out of bed to chair. Feels better. Able to ambulate, using incentive spirometer. Breathing is improved. No nausea, no vomiting, no diarrhea. No leg pain or leg swelling. OBJECTIVE: GENERAL: In no acute distress. VITAL SIGNS: Temperature is 99, heart rate is 95, respiratory rate is 20, blood pressure is 139/79, and pulse ox is 95% on 2 L nasal cannula. HEENT: Moist mucous membranes. No oral thrush. NECK: Supple. No JVD. LUNGS Has decreased breath sounds half way up from on the left side. HEART: S1 and S2. ABDOMEN: Soft and nontender. No organomegaly. EXTREMITIES: There is no edema. NEUROLOGIC: Awake, alert, and follow simple commands. MEDICATIONS: She is on Aromasin 25 mg daily, Coreg 6.25 mg twice a day, Cozaar 25 mg daily, albuterol, Atrovent nebulizer q. 6 hours, Ecotrin 81 mg daily, Lasix 40 mg daily, Lidoderm patch affected area, Protonix 40 mg daily, Robitussin DM 10 mL q. 4 hours p.r.n., Tylenol p.r.n., and Ultram 50 mg q. 6 hours p.r.n. LABORATORY DATA: Reviewed. No new lab is available. Since yesterday, microbiology: Pleural fluid and blood culture so far there is no growth. IMPRESSION AND PLAN: Recurrent cancer with large pleural effusion, probably metastatic disease, can rule-out second primary, status post reexpansion of pulmonary edema after thoracentesis, hilar mass, scapular lesion, there is also pleural-based on density. I spoke to the patient and I also spoke to nursing staff. Awaiting for cytology report to make a further decision if she needs further biopsy or cytology report that has been guide us for further chemotherapy. Clinically, she seems improved, breath sounds are better. If there is no need for biopsy, she could go home. Otherwise, she may be a candidate for hilar area radiation therapy that may help us to decrease the pleural effusion. We will make further recommendations once the cytology report is back. Thank you and we will follow with you. Lona Ocampo MD
== END 2016-11-26 18:49 | disposition home or self-care (01) | DRG 180 ==
LOC: ED 16:22 → ERH 19:48 → CCU 21:46 → 3RNO 11-22 12:32
PROVIDERS: ADMIT Family Medicine; ATTEND Family Medicine
PROC: 0W9B3ZX Drainage of Left Pleural Cavity, Percutaneous Approach, Diagnostic (ICD-10-PCS; principal; 2016-11-26)
PROC: BB4BZZZ Ultrasonography of Pleura (ICD-10-PCS; 2016-11-26)
DX: J91.0 Malignant pleural effusion (principal); J18.9 Pneumonia, unspecified organism; I50.9 Heart failure, unspecified; I11.0 Hypertensive heart disease with heart failure; J96.90 Respiratory failure, unspecified, unspecified whether with hypoxia or hypercapnia; C78.7 Secondary malignant neoplasm of liver and intrahepatic bile duct; C79.51 Secondary malignant neoplasm of bone; I42.7 Cardiomyopathy due to drug and external agent; J98.11 Atelectasis; T45.1X5A Adverse effect of antineoplastic and immunosuppressive drugs, initial encounter; Z79.82 Long term (current) use of aspirin; Z85.3 Personal history of malignant neoplasm of breast; Z95.810 Presence of automatic (implantable) cardiac defibrillator